=== PATIENT | female | born 1950 | race Caucasian/White ===

== ENCOUNTER 2023-08-12 11:17 | Outpatient (OUT) | payer MEDICARE, OTHER, SELFPAY ==
--- NOTE | 2023-08-12 11:20 | MM_ITS ---
Patient Name: ASHWIN PATTERSON MR#: [id number] : 1950 Exam Date: 08/12/2023 Ordering Doctor: DR TRINA BROCK M.D. RADIOLOGY REPORT PROCEDURE: MM TOMOSYNTHESIS SCREENING BI COMPARISON: MG MAMM SCREEN YURI W CAD, 03/02/2019. MG MAMM SCREEN 3D YURI CAD, 01/09/2021. INDICATIONS: Screening Calculator Name NCI Breast Cancer Risk Assessment Tool 5 Year Breast Cancer Risk 1.40% Lifetime Breast Cancer Risk 3.60% Personal Breast Cancer No Personal Ovarian Cancer No Treatments None Family Cancers Mother with liver cancer at age 57; Father with liver cancer at age 53. LOCATION: [facility] BREAST COMPOSITION: Scattered areas fibroglandular density. FINDINGS: DIAGNOSTIC CATEGORY 1--NEGATIVE. NO CHANGE FROM COMPARISON ASSESSMENT. Scattered benign-appearing calcifications are present. RIGHT BREAST: No significant suspicious finding. LEFT BREAST: No significant suspicious finding. RECOMMENDATIONS: ROUTINE MAMMOGRAM AND CLINICAL EVALUATION IN 12 MONTHS. PLEASE NOTE: A NORMAL MAMMOGRAM DOES NOT EXCLUDE THE POSSIBILITY OF BREAST CANCER. A CLINICALLY SUSPICIOUS PALPABLE LUMP SHOULD BE BIOPSIED. Dictated by: Liam Denny MD on 08/12/2023 at 12:58 Approved by: Liam Denny MD on 08/12/2023 at 12:59
== END 2023-08-12 11:18 | disposition home or self-care (01) ==
LOC: MAMMO 11:17
PROVIDERS: PCP Family Medicine; Visit Provider Family Medicine
DX: Z12.31 Encounter for screening mammogram for malignant neoplasm of breast (principal); Z80.8 Family history of malignant neoplasm of other organs or systems
CPT/HCPCS: 77063; 77067

== ENCOUNTER 2025-04-07 14:26 | Outpatient (OUT) | payer MEDICARE, OTHER, SELFPAY ==
--- NOTE | 2025-04-07 14:28 | MM_ITS ---
Patient Name: ASHWIN PATTERSON MR#: [id number] : 1950 Exam Date: 04/07/2025 Ordering Doctor: DR TRINA BROCK M.D. RADIOLOGY REPORT PROCEDURE: MM TOMOSYNTHESIS SCREENING BI COMPARISON: MM TOMOSYNTHESIS SCREENING BI, 08/12/2023. MG MAMM SCREEN 3D YURI CAD, 01/09/2021. MG MAMM SCREEN YURI W CAD, 03/02/2019. MAMMO YURI SCREEN, 04/15/1997. INDICATIONS: Screening Calculator Name NCI Breast Cancer Risk Assessment Tool 5 Year Breast Cancer Risk 1.40% Lifetime Breast Cancer Risk 3.40% Personal Breast Cancer No Personal Ovarian Cancer No Treatments None Family Cancers Mother with liver cancer at age 57; Father with liver cancer at age 53. LOCATION: [facility] BREAST COMPOSITION: There are scattered areas of fibroglandular density. FINDINGS: RIGHT BREAST: No significant suspicious finding. LEFT BREAST: No significant suspicious finding. DIAGNOSTIC CATEGORY 1--NEGATIVE. RECOMMENDATIONS: ROUTINE MAMMOGRAM AND CLINICAL EVALUATION IN 12 MONTHS. Dictated by: To Alvarez DO on 04/07/2025 at 16:38 Approved by: To Alvarez DO on 04/07/2025 at 16:55
--- OUTSIDE RECORDS SUMMARY | 2025-04-07 15:45 | XMS_ITS | CCD ---
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 Name Role Phone MITCHELL, DR BEAR Primary Care Unavailable RYNE, DR JEREMIAH Patel Admitting Unavailable WEST, DR VIRGILIO Serrano Consulting Unavailable HEMMER, DR JEREMIAH Patel Attending Unavailable ZIEBER, DR JESUS Mittal Consulting Unavailable HEMRYAN, DR JEREMIAH Patel Consulting Unavailable DELMY, DR MENA Attending Unavailable DELMY, DR MENA Consulting Unavailable DELMY, DR MENA Admitting Unavailable MITCHELL, DR BEAR Primary Care Unavailable Marco Brock MD Primary Care Provider Marco Brock MD Unavailable Hafsa JETT, Emani Unavailable [phone] [address] 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, Oly Unavailable Unavailable Loy GRANT, Oly Unavailable MARCO BROCK Attending Unavailable MARCO BROCK Attending Unavailable MARCO BROCK Attending Unavailable MARCO BROCK Attending Unavailable Medications Current Medications Medication Drug Class(es) Dates Sig (Normalized) Sig (Original) albuterol 0.833 mg/ml / ipratropium bromide 0.167 mg/ml inhalation solution (16 sources) Anticholinergic, beta2-Adrenergic Agonist Start: 02-11-2024 End: 08-09-2024 ipratropium-albute rol (Duo-Neb) 0.5-2.5 mg/3 mL nebulizer solution Indications: Mucopurulent chronic bronchitis (HCC) Take 3 mL by nebulization in the morning and 3 mL at noon and 3 mL in the evening and 3 mL before bedtime. 360 mL 5 02/11/2024 Active ALPRAZolam 0.25 mg oral tablet (20 sources) Benzodiazepine Start: 01-11-2025 End: 03-24-2025 take 1 tablet by mouth once ALPRAZolam (Xanax) 0.25 MG tablet Indications: Adjustment disorder with anxiety Take 1 tablet (0.25 mg) by mouth every 12 (twelve) hours 60 tablet 02/22/2025 03/24/2025 Active Start: 04-06-2024 End: 01-08-2025 take 1 tablet by mouth once ALPRAZolam (Xanax) 0.25 MG tablet Indications: Adjustment disorder with anxiety Take 1 tablet (0.25 mg) by mouth every 12 (twelve) hours 60 tablet 11/23/2024 01/08/2025 Discontinued (Reorder) Start: 11-04-2023 End: 04-03-2024 take 1 tablet by mouth once ALPRAZolam (Xanax) 0.25 MG tablet Indications: Adjustment disorder with anxiety (CMS/HCC) Take 1 tablet (0.25 mg) by mouth every 12 (twelve) hours 60 tablet 11/04/2023 04/03/2024 Discontinued (Reorder) Start: 08-06-2023 take 1 tablet by mouth once AL PRAZolam (Xanax) 0.25 MG tablet Indications: Adjustment disorder with anxiety (CMS/HCC) Take 1 tablet (0.25 mg) by mouth every 12 (twelve) hours 60 tablet 0 08/06/2023 Active amLODIPine 10 mg oral tablet (20 sources) Dihydropyridine Calcium Channel Donna Start: 11-11-2023 End: 08-06-2024 take 1 tablet by mouth once daily amLODIPine (Norvasc) 10 MG tablet Indications: Hypertension due to endocrine disorder Take 1 tablet (10 mg) by mouth Daily 90 tablet 3 08/06/2024 Active Start: 01-07-2023 take 1 tablet by yaritza th once daily amLODIPine (Norvasc) 10 MG tablet Indications: 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 30 tablet 11 08/06/2023 Active benzonatate 200 mg oral capsule (2 sources) Non-narcotic Antitussive Start: 08-29-2023 End: 09-08-2023 take 1 capsule by mouth three times daily as needed for cough benzonatate (Tessalon) 200 MG capsule Indications: Acute cough Take 1 capsule (200 mg) by mouth 3 (three) times a day as needed for cough for up to 10 days Do not crush or chew. 30 capsule 0 08/29/2023 09/08/2023 Active 120 actuat budesonide 0.16 mg/actuat / formoterol fumarate 0.0048 mg/actuat / glycopyrrolate 0.009 mg/actuat metered dose inhaler (16 sources) Corticosteroid, beta2-Adrenergic Agonist Start: 02-03-2024 take 1 puff(s) by inhalation in the morning Budeson-Glycopyrrol -Formoterol (Breztri Aerosphere) 160-9-4.8 MCG/ACT aerosol Indications: Mucopurulent chronic bronchitis (HCC) Inhale 1 puff in the morning and 1 puff before bedtime. 190 g 02/03/2024 Active cholecalciferol 0.025 mg oral capsule (18 sources) Vitamin D take 1 capsule by mouth in the morning cholecalciferol (Vitamin D-3) 25 MCG (1000 UT) capsule Take 1,000 Units by mouth in the morning. Active 1 ml denosumab 60 mg/ml prefilled syringe (18 sources) RANK Ligand Inhibitor denosumab (Prolia) 60 MG/ML solution prefilled syringe Inject 60 mg under the skin every 6 (six) months. Active doxycycline hyclate 100 mg oral tablet (2 sources) Tetracycline-class Drug Start: 08-29-2023 End: 09-08-2023 doxycycline (Vibra-Tabs) 100 MG tablet Indications: Acute bronchitis, unspecified organism Take 1 tablet (100 mg) by mouth in the morning and 1 tablet (100 mg) before bedtime. Do all this for 10 days. Take with a full glass of water and do not lie down for at least 30 minutes after.. 20 tablet 0 08/29/2023 09/08/2023 Active empagliflozin 25 mg oral tablet (18 sources) Sodium-Glucose Cotransporter 2 Inhibitor Start: 05-15-2023 take 1 tablet by mouth in the morning empagliflozin (Jardiance) 25 MG Indications: Type 2 diabetes mellitus without complication, without long-term current use of insulin (HCC) Take 1 tablet (25 mg) by mouth in the morning. 90 tablet 3 05/15/2023 Active Fish Oils (18 sources) take 1 capsule by mouth in the morning omega-3 (Fish Oil) 1200 MG capsule Take 1,200 mg by mouth in the morning. Active take 1 capsule by mouth in the m orning omega-3 (Fish Oil) 1200 MG capsule Take 1,200 mg by mouth in the morning. 0 Active folic acid 0.4 mg oral tablet (18 sources) take 0.4 mg by mouth in the morning folic acid (Folvite) 400 MCG tablet Take 0.4 mg by mouth in the morning. Active furosemide 20 mg oral tablet (20 sources) Loop Diuretic Start: 04-29-2024 End: 08-06-2024 take 1 tablet by mouth once daily furosemide (Lasix) 20 MG tablet Indications: Ankle edema Take 1 tablet (20 mg) by mouth Daily 100 tablet 3 08/06/2024 Active Start: 06-20-2023 take 1 tablet by yaritza th once daily furosemide (Lasix) 20 MG tablet Indications: Ankle edema TAKE 1 TABLET BY MOUTH ONCE DAILY 100 tablet 3 06/20/2023 Active 3 ml insulin glargine 100 unt/ml pen injector (19 sources) Insulin Analog Start: 06-26-2023 End: 06-15-2025 inject 10 [IU] by subcutaneous injection at bedtime insulin glargine (Lantus SoloStar) 100 UNIT/ML pen Indications: Type 2 diabetes mellitus without complication, without long-term current use of insulin ([facility]) Inject 10 Units under the skin at bedtime 9 mL 3 06/15/2024 06/15/2025 Active methylPREDNISolone (2 sources) Corticosteroid Start: 08-29-2023 End: 09-05-2023 methylPREDNISolone (Medrol Dospak) 4 MG tablets Indications: Acute bronchitis, unspecified organism Follow schedule on package instructions 21 tablet 0 08/29/2023 09/05/2023 Active potassium 99 mg extended release oral tablet (18 sources) take 1 tablet by mouth once daily Potassium 99 MG tablet Take 1 tablet by mouth 1 (one) time each day at the same time. Active semaglutide (Ozempic, 1 MG/DOSE,) 4 MG/3ML solution pen-injector (18 sources) Start: 10-01-2024 inject 1 mg by subcutaneous injection every week semaglutide (Ozempic, 1 MG/DOSE,) 4 MG/3ML solution pen-injector Indications: Type 2 Diabetes Mellitus Inject 1 mg under the skin 1 (one) time per week 1 each 10/01/2024 Active Start: 10-01-2024 End: 10-31-2024 inject 1 mg by subcutaneous injection every week semaglutide (Ozempic, 1 MG/DOSE,) 4 MG/3ML solution pen-injector Indications: Type 2 Diabetes Mellitus Inject 1 mg under the skin 1 (one) time per week 1 each 10/01/2024 10/31/2024 Active Start: 09-29-2024 End: 10-29-2024 inject 1 mg by subcutaneous injection every week semaglutide (Ozempic, 1 MG/DOSE,) 4 MG/3ML solution pen-injector Indications: Type 2 Diabetes Mellitus Inject 1 mg under the skin 1 (one) time per week 1 each 09/29/2024 10/29/2024 Active inject 1 mg by subcu taneous injection every week semaglutide (Ozempic, 1 MG/DOSE,) 4 MG/3ML solution pen-injector Indications: Type 2 Diabetes Mellitus Inject 1 mg under the skin 1 (one) time per week Active inject 1 mg by subcu taneous injection every week semaglutide (Ozempic, 1 MG/DOSE,) 4 MG/3ML solution pen-injector Indications: Type 2 Diabetes Mellitus Inject 1 mg under the skin 1 (one) time per week 0 Active zinc gluconate 30 mg oral tablet (18 sources) take 1 tablet by yaritza once daily zinc 30 MG tablet Take 1 tablet by mouth 1 (one) time each day at the same time. 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/HCC) TAKE 1 TABLET BY MOUTH TWICE DAILY 180 tablet 3 11/11/2023 08/06/2024 Discontinued (Other) Start: 01-07-2023 take 1 tablet by yaritza twice daily metFORMIN (Glucophage) 1000 MG tablet Indications: Type 2 diabetes mellitus without complication, unspecified whether custodial insulin use (CMS/[facility]) TAKE 1 TABLET BY MOUTH TWICE DAILY 180 tablet 3 01/07/2023 Active Problems Active Problems Problem Classification Problem Date Documented Da te Episodic/Chronic Acute bronchitis (2 sources) Acute bronchitis; Translations: [Acute bronchitis, unspecified] 08-29-2023 Episodic Adjustment disorders (20 sources) Adjustment disorder with anxious mood; Translations: [Adjustment disorder with anxiety] Onset: 12-13-2022 12-13-2022 Chronic Chronic obstructive pulmonary disease and bronchiectasis (20 sources) Mucopurulent chronic bronchitis; Translations: [Mucopurulent chronic bronchitis] Onset: 12-13-2022 12-13-2022 Chronic Diabetes mellitus with complications (20 sources) Type 2 diabetes mellitus; Translations: [Type 2 diabetes mellitus with other specified complication] Onset: 02-03-2024 02-03-2024 Chronic Diabetes mellitus without complication (20 sources) Type 2 diabetes mellitus without complication; Translations: [Type 2 diabetes mellitus without complications] Onset: 12-13-2022 12-13-2022 Chronic Diabetes mellitus without complication (2 sources) Abnormal glucose tolerance test; Translations: [Other abnormal glucose] 08-06-2024 Episodic Disorders of lipid metabolism (20 sources) Mixed hyperlipidemia; Translations: [Mixed hyperlipidemia] Onset: 12-13-2022 12-13-2022 Chronic Essential hypertension (20 sources) Benign essential hypertension; Translations: [Essential (primary) hypertension] Onset: 08-06-2023 08-06-2023 Chronic Hypertension with complications and secondary hypertension (20 sources) Hypertension secondary to endocrine disorder; Translations: [Hypertension secondary to endocrine disorders] Onset: 12-13-2022 12-13-2022 Chronic Immunizations and screening for infectious disease (2 sources) Patient encounter status; Translations: [Encounter for immunization] 08-06-2024 Episodic Malaise and fatigue (1 source) Other fatigue; Translations: [OTHER FATIGUE] Onset: 08-08-2021 Episodic Menopausal disorders (20 sources) Other primary ovarian failure; Translations: [Primary ovarian failure] Onset: 01-09-2021 Chronic Osteoporosis (20 sources) Age-related osteoporosis without current pathological fracture; Translations: [Osteoporosis] Onset: 01-13-2021 12-13-2022 Chronic Other aftercare (2 sources) Long-term current use of insulin; 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] 08-06-2024 Episodic Other lower respiratory disease (2 sources) Interstitial lung disease; Translations: [Interstitial pulmonary disease, unspecified] 08-06-2024 Chronic Other lower respiratory disease (2 sources) Cough; Translations: [Acute cough] 08-29-2023 Episodic Other nutritional; endocrine; and metabolic disorders (18 sources) Hypercalcemia; Translations: [Hypercalcemia] Onset: 12-13-2022 12-13-2022 Chronic Other upper respiratory disease (4 sources) Nasal congestion; Translations: [NASAL CONGESTION] Onset: 08-04-2021 Episodic Other upper respiratory infections (18 sources) Sinusitis; Translations: [Chronic sinusitis, unspecified] Onset: 12-13-2022 12-13-2022 Chronic Unclassified (1 source) COUGH, UNSPECIFIED; Translations: [COUGH, UNSPECIFIED] Onset: 08-08-2021 Viral infection (1 source) COVID-19; Translations: [COVID-19] Onset: 08-08-2021 Past or Other Problems Problem Classification Problem Date Documented Da te Episodic/Chronic Other connective tissue disease (4 sources) Muscle pain; Translations: [Myalgia, unspecified site] Onset: 11-12-2024 11-12-2024 Episodic Other non-traumatic joint disorders (20 sources) Ankle edema; Translations: [Effusion, unspecified ankle] Onset: 12-13-2022 12-13-2022 Episodic Other screening for suspected conditions (not mental disorders or infectious disease) (20 sources) Encounter for screening mammogram for malignant neoplasm of breast; Translations: [Measurement finding above reference range] Onset: 01-13-2021 12-13-2022 Episodic Residual codes; unclassified (1 source) Family history of malignant neoplasm of other organs or systems; Translations: [FAM HX MALIG NEOPLASM OTH ORGN/SYS] Onset: 01-13-2021 Episodic Results Test Name Value Interpretation Reference Range Facility CBC (INCLUDES DIFF/PLT)on Basophils (Bld) [#/Vol] 0.073 10*3/uL Normal 0-200 [facility] Comment on above: Performed By: #### 7 600, 6399, [id number] #### [facility] of [address], [address] [place] [address] [employer] Supervisor: Jason Hastings MD Basophils/100 WBC (Bld) 0.9 % Normal [facility] Comment on above: Performed By: #### 7 600, 6399, 67300 #### [facility] of [address], [address] [place] [address] [employer] Supervisor: Jason Hastings MD Eosinophils (Bld) [#/Vol] 0.64 10*3/uL High 15-500 [facility] Comment on above: Performed By: #### 7 600, 6399, 70005 #### [facility] of [place] [address] [employer] Supervisor: Jason Hastings MD Eosinophils/100 WBC (Bld) 7.9 % Normal [facility] Comment on above: Performed By: #### 7 600, 6399, 70555 #### [facility] of [place] [address] [employer] Supervisor: Jason Hastings MD Erythrocyte distribution width (RBC) [Ratio] 13.8 % Normal 11.0-15.0 [facility] Comment on above: Performed By: #### 7 600, 6399, 30461 #### [facility] of [place] [address] [employer] Supervisor: Jason Hastings MD Hematocrit (Bld) [Volume fraction] 45.8 % High 35.0-45.0 [facility] Comment on above: Performed By: #### 7 600, 6399, 50904 #### [facility] of [place] [address] [employer] Supervisor: Jason Hastings MD Hemoglobin (Bld) [Mass/Vol] 14.9 g/dL Normal 11.7-15.5 [facility] Comment on above: Performed By: #### 7 600, 6399, 37429 #### [facility] of [address], [address] [place] [address] [employer] Supervisor: Jason Hastings MD Lymphocytes (Bld) [#/Vol] 3.605 10*3/uL Normal 850-3900 [facility] Comment on above: Performed By: #### 7 600, 6399, 55531 #### [facility] [address], [address] [place] [address] [employer] Supervisor: Jason Hastings MD Lymphocytes/100 WBC (Bld) 44.5 % Normal [facility] Comment on above: Performed By: #### 7 600, 6399, 63686 #### [facility] [place] [address] [employer] Supervisor: Jason Hastings MD MCH (RBC) [Entitic mass] 29.7 pg Normal 27.0-33.0 [facility] Comment on above: Performed By: #### 7 600, 63, 82523 #### [facility] [place] [address] [employer] Supervisor: Jason Hastings MD MCHC (RBC) [Mass/Vol] 32.5 g/dL Normal 32.0-36.0 [facility] Comment on above: Result Comment: For adults, a slight decrease in the calculated MCHC value (in the range of 30 to 32 g/dL) is most likely not clinically significant; however, it should be interpreted with caution in correlation with other red cell parameters and the patient's clinical condition. Performed By: #### 7 600, 6399, 25613 #### [facility] [place] [address] [employer] Supervisor: Jason Hastings MD MCV (RBC) [Entitic vol] 91.2 fL Normal 80.0-100.0 [facility] Comment on above: Performed By: #### 7 600, 6399, 99455 #### [facility] [place] [address] [employer] Supervisor: Jason Hastings MD Monocytes (Bld) [#/Vol] 0.567 10*3/uL Normal 200-950 [facility] Comment on above: Performed By: #### 7 600, 6399, 96763 #### [facility] of [place] [address] [employer] Supervisor: Jason Hastings MD Monocytes/100 WBC (Bld) 7.0 % Normal [facility] Comment on above: Performed By: #### 7 600, 6399, 82074 #### [facility] of [place] [address] [employer] Supervisor: Jason Hastings MD Neutrophils (Bld) [#/Vol] 3.216 10*3/uL Normal 6157-3090 [facility] Comment on above: Performed By: #### 7 600, 6399, 69710 #### [facility] of [place] [address] [employer] Supervisor: Jason Hastings MD Neutrophils/100 WBC (Bld) 39.7 % Normal [facility] Comment on above: Performed By: #### 7 600, 6399, 64364 #### [facility] of [place] [address] [employer] Supervisor: Jason Hastings MD Platelet mean volume (Bld) [Entitic vol] 10.7 fL Normal 7.5-12.5 [facility] Comment on above: Performed By: #### 7 600, 6399, 32534 #### [facility] of [place] [address] [employer] Supervisor: Jason Hastings MD Platelets (Bld) [#/Vol] 258 10*3/uL Normal 140-400 [facility] Comment on above: Performed By: #### 7 600, 6399, 34929 #### [facility] of [place] [address] [employer] Supervisor: Jason Hastings MD RBC (Bld) [#/Vol] 5.02 10*6/uL Normal 3.80-5.10 [facility] Comment on above: Performed By: #### 7 600, 6399, 26862 #### [facility] of [address], [address] [place] [address] [employer] Supervisor: Jason Hastings MD WBC (Bld) [#/Vol] 8.1 10*3/uL Normal 3.8-10.8 [facility] Comment on above: Performed By: #### 7 600, 6399, 39640 #### [facility] of [address], [address] [place] [address] [employer] Supervisor: Jason Hastings MD COMPREHENSIVE METABOLIC PANE [facility] 10-31-2024 Albumin [Mass/Vol] 4.4 g/dL Normal 3.6-5.1 [facility] Comment on above: Performed By: #### 7 600, 6399, 92299 #### [facility] of [address], [address] [place] [address] [employer] Supervisor: Jason Hastings MD Albumin/Globulin [Mass ratio] 1.8 {ratio} Normal 1.0-2.5 [facility] Comment on above: Performed By: #### 7 600, 6399, 31662 #### [facility] of [address], [address] [place] [address] [employer] Supervisor: Jason Hastings MD ALP [Catalytic activity/Vol] 64 U/L Normal 37-153 [facility] Comment on above: Performed By: #### 7 600, 6399, 34348 #### [facility] of [place] [address] [employer] Supervisor: Jason Hastings MD ALT [Catalytic activity/Vol] 11 U/L Normal 6-29 [facility] Comment on above: Performed By: #### 7 600, 6399, 75269 #### [facility] of [place] [address] [employer] Supervisor: Jason Hastings MD AST [Catalytic activity/Vol] 14 U/L Normal 10-35 [facility] Comment on above: Performed By: #### 7 600, 6399, 40173 #### [facility] of [place] [address] [employer] Supervisor: Jason Hastings MD Bilirubin [Mass/Vol] 0.3 mg/dL Normal 0.2-1.2 [facility] Comment on above: Performed By: #### 7 600, 6399, 35202 #### [facility] of [address], [address] [place] [address] [employer] Supervisor: Jason Hastings MD Calcium [Mass/Vol] 10.0 mg/dL Normal 8.6-10.4 [facility] Comment on above: Performed By: #### 7 600, 6399, 85305 #### [facility] of [place] [address] [employer] Supervisor: Jason Hastings MD Chloride [Moles/Vol] 100 mmol/L Normal 98-110 [facility] Comment on above: Performed By: #### 7 600, 6399, 29346 #### [facility] of [place] [address] [employer] Supervisor: Jason Hastings MD CO2 [Moles/Vol] 30 mmol/L Normal 20-32 [facility] Comment on above: Performed By: #### 7 600, 6399, 18074 #### [facility] [place] [address] [employer] Supervisor: Jason Hastings MD Creatinine [Mass/Vol] 0.55 mg/dL Low 0.60-1.00 [facility] Comment on above: Performed By: #### 7 600, 6399, 78764 #### [facility] [place] [address] [employer] Supervisor: Jason Hastings MD GFR/1.73 sq M.predicted among non-blacks MDRD (S/P/Bld) [Vol rate/Area] 97 mL/min/{1.73_m2} Normal > OR = 60 [facility] Comment on above: Performed By: #### 7 600, 6399, 10435 #### [facility] of [place] [address] [employer] Supervisor: Jason Hastings MD Globulin (S) [Mass/Vol] 2.4 g/dL Normal 1.9-3.7 [facility] Comment on above: Performed By: #### 7 600, 6399, 06335 #### [facility] [place] [address] [employer] Supervisor: Jason Hastings MD Glucose [Mass/Vol] 106 mg/dL High 65-99 [facility] Comment on above: Result Comment: Fasting reference interval For someone without known diabetes, a glucose value between 100 and 125 mg/dL is consistent with prediabetes and should be confirmed with a follow-up test. Performed By: #### 7 600, 6399, 18834 #### [facility] [place] [address] [employer] Supervisor: Jason Hastings MD Potassium [Moles/Vol] 4.6 mmol/L Normal 3.5-5.3 [facility] Comment on above: Performed By: #### 7 600, 6399, 41674 #### [facility] [place] [address] [employer] Supervisor: Jason Hastings MD Protein [Mass/Vol] 6.8 g/dL Normal 6.1-8.1 [facility] Comment on above: Performed By: #### 7 600, 6399, 74341 #### [facility] [place] [address] [employer] Supervisor: Jason Hastings MD Sodium [Moles/Vol] 140 mmol/L Normal 135-146 [facility] Comment on above: Performed By: #### 7 600, 6399, 85019 #### [facility] [place] [address] [employer] Supervisor: Jason Hastings MD Urea nitrogen [Mass/Vol] 30 mg/dL High 7-25 [facility] Comment on above: Performed By: #### 7 600, 6399, 68659 #### [facility] [place] [address] [employer] Supervisor: Jason Hastings MD Urea nitrogen/Creatinine [Mass ratio] 55 mg/mg High 6-22 [facility] Comment on above: Performed By: #### 7 600, 6399, 87127 #### [facility] [address], [address] [place] [address] [employer] Supervisor: Jason Hastings MD LIPID PANEL, [facility] 10-20 Cholesterol [Mass/Vol] 206 mg/dL High <200 [facility] Comment on above: Order Comment: SPLIT 10/28/2024 FROM [id number] Performed By: #### 7 600, 6399, 16740 #### [facility] [address], [address] [place] [address] [employer] Supervisor: Jason Hastings MD Cholesterol in HDL [Mass/Vol] 57 mg/dL Normal > OR = 50 [facility] Comment on above: Order Comment: SPLIT 10/28/2024 FROM [id number] Performed By: #### 7 600, 6399, 68094 #### [facility] [address], [address] [place] [address] [employer] Supervisor: Jason Hastings MD Cholesterol in LDL [Mass/Vol] 124 mg/dL High [facility] Comment on above: Order Comment: SPLIT 10/28/2024 FROM [id number] Result Comment: Refe rence range: <100 Desirable range <100 mg/dL for primary prevention; <70 mg/dL for patients with CHD or diabetic patients with > or = 2 CHD risk factors. LDL-C is now calculated using the Eduardo-Juan Luis calculation, which is a validated novel method providing better accuracy than the Friedewald equation in the estimation of LDL-C. Eduardo RUIZ et al. MIGUEL. 2013;310(19): 2517-8659 (http://education.whoplusyou.[employer]faq/CEB503) Performed By: #### 7 600, 6399, 26816 #### [facility] [address], [address] [place], [place] [address] [employer] Supervisor: Jason Hastings MD Cholesterol.total/C holesterol in HDL [Mass ratio] 3.6 {ratio} Normal <5.0 [facility] Comment on above: Order Comment: SPLIT 10/28/2024 FROM [id number] Performed By: #### 7 600, [id number], [id number] #### [facility] [address], [address] [place] [address] [employer] Supervisor: Jason Hastings MD NON HDL CHOLESTEROL 149 mg/dL (calc) High <130 [facility] Comment on above: Order Comment: SPLIT 10/28/2024 FROM [id number] Result Comment: For patients with diabetes plus 1 major ASCVD risk factor, treating to a non-HDL-C goal of <100 mg/dL (LDL-C of <70 mg/dL) is considered a therapeutic option. Performed By: #### 7 600, 6399, [id number] #### [facility] [address], [address] [place] [address] [employer] Supervisor: Jason Hastings MD Triglyceride [Mass/Vol] 141 mg/dL Normal <150 [facility] Comment on above: Order Comment: SPLIT 10/28/2024 FROM [id number] Performed By: #### 7 600, [id number], [id number] #### [facility] [address], [address] [place] [address] [employer] Supervisor: Jason Hastings MD ALBUMIN, RANDOM URINE W/CREA TININEon 10-29-2024 ALBUMIN, URINE 1.3 mg/dL Normal See Note: [facility] Comment on above: Order Comment: FASTI NG:YES DIFFICULT DRAW. PATIENT ADVISED TO RETURN FOR COLLECTION. FASTING: YES Result Comment: Refe rence Range: Reference Range Not established Performed By: #### 6 517 #### [facility] [address], [address] [place] [address] [employer] Supervisor: Jason Hastings MD ALBUMIN/CREATININE RATIO, RANDOM URINE 87 mg/g creat High <30 [facility] Comment on above: Order Comment: FASTI NG:YES DIFFICULT DRAW. PATIENT ADVISED TO RETURN FOR COLLECTION. FASTING: YES Result Comment: The ADA defines abnormalities in albumin excretion as follows: Albuminuria Category Result (mg/g creatinine) Normal to Mildly increased <30 Moderately increased 30-299 Severely increased > OR = 300 The ADA recommends that at least two of three specimens collected within a 3-6 month period be abnormal before considering a patient to be within a diagnostic category. Performed By: #### 6 517 #### [facility] [address], [address] [place] [address] [employer] Supervisor: Jason Hastings MD Creatinine (U) [Mass/Vol] 15 mg/dL Low 20-275 [facility] Comment on above: Order Comment: FASTI NG:YES DIFFICULT DRAW. PATIENT ADVISED TO RETURN FOR COLLECTION. FASTING: YES Performed By: #### 6 517 #### [facility] [address], [address] [place] [address] [employer] Supervisor: Jason Hastings MD Laboratory - Hematology and Cell countson 08-06-2024 HbA1c (Bld) [Mass fraction] 5.8 % [facility] No Panel Informationon 08-06 Interpretation and review of laboratory results Normal [facility] Chest 2 Views*on 08-03-19 23 XR Chest 2 Views* HISTORY: Cough x 2 weeks FINDINGS: Diffuse increase in interstitial markings are present, possibly representing interstitial pneumonia. No alveolar infiltrate, hilar/mediastinal lymphadnenopathy pulmonary edema or pleural effusions are seen. Cardiac silhouette size is normal. Skeletal structures are unremarkable. IMPRESSION: Parenchymal findings, possible acute interstitial pneumonia. COMMENT: If interstitial pneumonia is not clinically suspect, findings can be consistent with early interstitial lung disease. Report reported and signed by Alin Stauffer on 08/03/2022 1036 Normal [facility] Microalbumin (with Creat)on 10-18-2021 mALB <1.[address] [facility] Comment on above: Result Comment: Unab le to calculate mALB/Crea ratio, mALB is <1.2 mg/dL mALB reference range not established. Performed By: #### m ALBC #### [facility] [address] [id number] UCREA 8 mg/dL Low 28-217 [facility] Comment on above: Performed By: #### m ALBC #### [facility] [address], [place] [id number] RESPIRATORY PANEL PLUSon Adenovirus Not detected Normal NOT DETECTED [facility] Comment on above: Performed By: #### R SPLUS #### [facility] [address] [place] [address] Dr. Sam Vallejo. Parapertusis Not detected Normal NOT DETECTED [facility] Comment on above: Performed By: #### R SPLUS #### [facility] [address] [place] [address] Dr. Sam Vallejo. Pertussis Not detected Normal NOT DETECTED [facility] Comment on above: Performed By: #### R SPLUS #### [facility] [address] [place] [address] Dr. Sam Weber Chlamydia Pneumoniae Not detected Normal NOT DETECTED [facility] Comment on above: Performed By: #### R SPLUS #### [facility] [address] [place] [address] Dr. Sam Weber Coronavirus 229E Not detected Normal NOT DETECTED [facility] Comment on above: Performed By: #### R SPLUS #### [facility] [address] [place] [address] Dr. Sam Weber Coronavirus HKU1 Not detected Normal NOT DETECTED [facility] Comment on above: Performed By: #### R SPLUS #### [facility] [address] [place] [address] Dr. Sam Weber Coronavirus NL63 Not detected Normal NOT DETECTED [facility] Comment on above: Performed By: #### R SPLUS #### [facility] [address] [place] [address] Dr. Sam Weber Coronavirus OC43 Not detected Normal NOT DETECTED [facility] Comment on above: Performed By: #### R SPLUS #### [facility] [address] [place] [address] Dr. Sam Weber Influenza A H1 2009 Not detected Normal NOT DETECTED [facility] Comment on above: Performed By: #### R SPLUS #### [facility] [address] [place] [address] Dr. Sam Weber Influenza A H3 Not detected Normal NOT DETECTED [facility] Comment on above: Performed By: #### R SPLUS #### [facility] [address] [place] [address] Dr. Sam Weber Influenza B Not detected Normal NOT DETECTED [facility] Comment on above: Performed By: #### R SPLUS #### [facility] [address] [place] [address] Dr. Sam Weber Metapneumovirus Not detected Normal NOT DETECTED [facility] Comment on above: Performed By: #### R SPLUS #### [facility] [address] [place] [address] Dr. Sam Weber Mycoplas. Pneumoniae Not detected Normal NOT DETECTED [facility] Comment on above: Performed By: #### R SPLUS #### [facility] [address] [place] [address] Dr. Sam Weber Parainfluenza 1 Not detected Normal NOT DETECTED [facility] Comment on above: Performed By: #### R SPLUS #### [facility] [address] [place] [address] Dr. Sam Weber Parainfluenza 2 Not detected Normal NOT DETECTED [facility] Comment on above: Performed By: #### R SPLUS #### [facility] [address] [place] [address] Dr. Sam Weber Parainfluenza 3 Not detected Normal NOT DETECTED [facility] Comment on above: Performed By: #### R SPLUS #### [facility] [address] [place] [address] Dr. Sam Weber Parainfluenza 4 Not detected Normal NOT DETECTED [facility] Comment on above: Performed By: #### R SPLUS #### [facility] [address] [place] [address] Dr. Sam Weber Rhino/Enterovirus Not detected Normal NOT DETECTED [facility] Comment on above: Performed By: #### R SPLUS #### [facility] [address] [place] [address] Dr. Sam Weber RP2 Header 1 RESPIRATORY PANEL: VIRUSES Normal [facility] Comment on above: Performed By: #### R SPLUS #### [facility] [address] [place] [address] Dr. Sam Weber RP2 Header 2 RESPIRATORY PANEL: BACTERIA Normal [facility] Comment on above: Performed By: #### R SPLUS #### [facility] [address] [place] [address] Dr. Sam Weber RSV Not detected Normal NOT DETECTED [facility] Comment on above: Performed By: #### R SPLUS #### [facility] [address] [place] [address] Dr. Sam Weber SARS-CoV-2 (COVID-19) RNA ANNEL+probe Ql (Unsp spec) Detected Critically abnormal NOT DETECTED [facility] Comment on above: Performed By: #### R SPLUS #### [facility] [address] [place] [address] Dr. Sam Weber MG MAMM SCREEN 3D YURI CADon 01-09-2021 MG MAMM SCREEN 3D YURI CAD Patient: ASHWIN MORA Exam Date: 01/09/2021 : 1950 Gender:F Ordering : DR JEREMIAH MICHELE PA Admission #: [id number] Family : Order #: [id number] CLICK HERE TO VIEW EXAM RADIOLOGY REPORT PROCEDURE: MAMMOGRAM SCREENING 3D BILATERAL CAD COMPARISON: MG MAMM SCREEN YURI W CAD, 01/15/2018. MG MAMM SCREEN YURI W CAD, 03/02/2019. INDICATIONS: Screening mammography Calculator Name NCI Breast Cancer Risk Assessment Tool 5 Year Breast Cancer Risk 1.40% Lifetime Breast Cancer Risk 4.20% Personal Breast Cancer No Personal Ovarian Cancer No Treatments None Family Cancers Mother with liver cancer at age 57; Father with liver cancer at age 53. LOCATION: [facility] BREAST COMPOSITION: Scattered areas fibroglandular density. FINDINGS: DIAGNOSTIC CATEGORY 1--NEGATIVE NO CHANGE FROM COMPARISON ASSESSMENT. Scattered benign-appearing calcifications are present. Scattered benign-appearing lymph nodes are present. RIGHT BREAST: No significant suspicious finding. LEFT BREAST: No significant suspicious finding. RECOMMENDATIONS: ROUTINE MAMMOGRAM AND CLINICAL EVALUATION IN 12 MONTHS. PLEASE NOTE: A NORMAL MAMMOGRAM DOES NOT EXCLUDE THE POSSIBILITY OF BREAST CANCER. A CLINICALLY SUSPICIOUS PALPABLE LUMP SHOULD BE BIOPSIED. Dictated by: Virgilio Denny MD on 01/10/2021 at 07:42 Approved by: Virgilio Denny MD on 01/10/2021 at 07:45 Normal [facility] XR DEXA BONE DENSITYon 01-09 XR DEXA BONE DENSITY EXAMINATION: XR DEXA BONE DENSITY HISTORY: Menopause present COMPARISON: DEXA bone densitometry 03/02/2019 TECHNIQUE: Dual-energy X-ray absorptiometry (DXA) was performed. FINDINGS: SPINE ANALYSIS: Average bone mineral density is 1.022 g/cm2. T-score (standard deviation relative to young adult mean): -1.5 . -1.9% change since prior study. HIP ANALYSIS: Lowest bone mineral density is within the left femoral neck, 0.6-0 g/cm2. T-score (standard deviation relative to young adult mean): -3.0 . -2.1% change since prior study. IMPRESSION: [employer] Classification: Osteoporosis - High Fracture Risk Electronically authenticated by: JESUS FOX Date: 2021-01-09 11:43 Normal [facility] Vital Signs Date Time Vital Sign Value Performing Clinician Faci lity 02-22-2025 13:13-0400 Body height 149.9 cm Marco Brock MD Work Phone: [facility] 02-22-2025 13:13-0400 Body mass index (BMI) [Ratio] 29.08 kg/m2 Marco Brock MD Work Phone: [facility] 02-22-2025 13:13-0400 Body weight 65.32 kg Marco Brock MD Work Phone: [facility] 02-22-2025 13:13-0400 Diastolic blood pressure 78 mm[Hg] Marco Brock MD Work Phone: [facility] 02-22-2025 13:13-0400 Heart rate 65 /min Marco Brock MD Work Phone: [facility] 02-22-2025 13:13-0400 SaO2% (BldA) [Mass fraction] 95 % Marco Brock MD Work Phone: [facility] 02-22-2025 13:13-0400 Systolic blood pressure 130 mm[Hg] Marco Brock MD Work Phone: [facility] 10-26-2024 13:13-0400 Body height 149.9 cm Marco Brock MD Work Phone: [facility] 10-26-2024 13:13-0400 Body mass index (BMI) [Ratio] 29.08 kg/m2 Marco Brock MD Work Phone: [facility] 10-26-2024 13:13-0400 Body weight 65.32 kg Marco Brock MD Work Phone: [facility] 10-26-2024 13:13-0400 Diastolic blood pressure 84 mm[Hg] Marco Brock MD Work Phone: [facility] 10-26-2024 13:13-0400 Heart rate 88 /min Marco Brock MD Work Phone: [facility] 10-26-2024 13:13-0400 SaO2% (BldA) [Mass fraction] 93 % Marco Brock MD Work Phone: [facility] 10-26-2024 13:13-0400 Systolic blood pressure 122 mm[Hg] Marco Brock MD Work Phone: [facility] 08-06-2024 14:18-0500 Body height 149.9 cm Marco Brock MD Work Phone: [facility] 08-06-2024 14:18-0500 Body mass index (BMI) [Ratio] 28.07 kg/m2 Marco Brock MD Work Phone: [facility] 08-06-2024 14:18-0500 Body weight 63.05 kg Marco Brock MD Work Phone: [facility] 08-06-2024 14:18-0500 Diastolic blood pressure 84 mm[Hg] Marco Brock MD Work Phone: [facility] 08-06-2024 14:18-0500 Heart rate 86 /min Mraco Brock MD Work Phone: [facility] 08-06-2024 14:18-0500 SaO2% (BldA) [Mass fraction] 95 % Marco Brock MD Work Phone: [facility] 08-06-2024 14:18-0500 Systolic blood pressure 126 mm[Hg] Marco Brock MD Work Phone: [facility] 06-22-2024 13:24-0500 Body height 149.9 cm Marco Brock MD Work Phone: [facility] 06-22-2024 13:24-0500 Body mass index (BMI) [Ratio] 27.87 kg/m2 Marco Brokc MD Work Phone: [facility] 06-22-2024 13:24-0500 Body weight 62.6 kg Marco Brock MD Work Phone: [facility] 06-22-2024 13:24-0500 Diastolic blood pressure 82 mm[Hg] Marco Brock MD Work Phone: [facility] 06-22-2024 13:24-0500 Heart rate 72 /min Marco Brock MD Work Phone: [facility] 06-22-2024 13:24-0500 SaO2% (BldA) [Mass fraction] 95 % Marco Brock MD Work Phone: [facility] 06-22-2024 13:24-0500 Systolic blood pressure 132 mm[Hg] Marco Brock MD Work Phone: [facility] 08-29-2023 10:02-0500 Body mass index (BMI) [Ratio] 31.87 kg/m2 Sarah Jimenez AUTHORIZER Work Phone: [facility] 08-29-2023 10:02-0500 Body temperature 98.1 [degF] Sarah Jimenez AUTHORIZER Work Phone: [facility] 08-29-2023 10:02-0500 Body weight 71.58 kg Sarah Jimenez AUTHORIZER Work Phone: [facility] 08-29-2023 10:02-0500 Diastolic blood pressure 88 mm[Hg] Sarah Jimenez AUTHORIZER Work Phone: [facility] 08-29-2023 10:02-0500 Heart rate 105 /min Sarah Jimenez AUTHORIZER Work Phone: [facility] 08-29-2023 10:02-0500 SaO2% (BldA) [Mass fraction] 95 % Sarah Jimenez AUTHORIZER Work Phone: [facility] 08-29-2023 10:02-0500 Systolic blood pressure 124 mm[Hg] Sarah Jimenez AUTHORIZER Work Phone: [facility] Encounters Encounter Date Encounter Type Care Provider Facility Start: 02-22-2025 End: 02-22-2025 Office outpatient visit 25 minutes Marco Brock MD Work Phone: [facility] Comment on above: Microalbuminuria due to type 2 diabetes mellitus (HCC) (Primary Dx); Adjustment disorder with anxiety Start: 02-22-2025 End: 02-22-2025 ambulatory MARCO BROCK Not Available Start: 01-08-2025 End: 01-11-2025 Refill Siena Ya LPN Work Phone: [facility] Comment on above: Adjustment disorder with anxiety Start: 11-23-2024 End: 11-23-2024 Refill Marco Brock MD Work Phone: [facility] Comment on above: Adjustment disorder with anxiety (CMS/HCC) Start: 10-26-2024 End: 10-26-2024 ambulatory MARCO BROCK Not Available Start: 10-26-2024 End: 10-26-2024 Office outpatient visit 25 minutes Marco Brock MD Work Phone: [facility] Comment on above: Adjustment disorder with anxiety (CMS/HCC) (Primary Dx); 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); Benign essential hypertension (CMS/HCC); Type 2 diabetes mellitus with other specified complication, with long-term current use of insulin Start: 09-30-2024 End: 09-30-2024 Refill Marco Brock MD Work Phone: [facility] Comment on above: Adjustment disorder with anxiety (CMS/HCC) Start: 09-29-2024 End: 09-30-2024 Refill Emani Levon MA [facility] Comment on above: Adjustment disorder with anxiety (CMS/HCC) Start: 08-06-2024 End: 08-06-2024 Assay of hemosiderin, quant Marco Brock MD Work Phone: [facility] Start: 08-06-2024 End: 08-06-2024 Bamboo flowsheet Marco Brock MD Work Phone: [facility] Start: 08-06-2024 End: 08-06-2024 Bamboo flowsheet Marco Brock MD Work Phone: [facility] Start: 08-06-2024 End: 08-06-2024 Patient encounter procedure Marco Brock MD Work Phone: [facility] Comment on above: Routine general medi chris examination at 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); Adjustment disorder with anxiety (CMS/HCC); Encounter for immunization; Type 2 diabetes mellitus without complication, without long-term current use of insulin (CMS/HCC); Abnormal glucose tolerance test; Medicare annual wellness visit, subsequent; Mixed hyperlipidemia (CMS/HCC); Interstitial pulmonary disease, unspecified (CMS/HCC); Type 2 diabetes mellitus with other specified complication (CMS/HCC); Hyperlipidemia, unspecified (CMS/HCC); Chronic obstructive pulmonary disease, unspecified (CMS/HCC); Mucopurulent chronic bronchitis (CMS/HCC); longterm (current) use of insulin (CMS/HCC) Start: 08-06-2024 End: 08-06-2024 ambulatory MARCO BROCK Not Available Start: 06-22-2024 End: 06-22-2024 Office outpatient visit 25 minutes Marco Brock MD Work Phone: [facility] Comment on above: Osteoporosis without current pathological fracture, unspecified osteoporosis type (CMS/HCC) (Primary Dx); Adjustment disorder with anxiety (CMS/HCC) Start: 06-22-2024 End: 06-22-2024 ambulatory MARCO BROCK Not Available Start: 06-13-2024 End: 06-15-2024 Refill Marco Brock MD Work Phone: [facility] Comment on above: Type 2 diabetes jayna itus without complication, without long- term current use of insulin (CMS/HCC) Start: 05-20-2024 End: 05-20-2024 Refill 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 Work Phone: [facility] Comment on above: Adjustment disorder with anxiety (CMS/HCC) Start: 04-03-2024 End: 04-06-2024 Refill 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 Work Phone: [facility] Comment on above: Adjustment disorder with anxiety (CMS/HCC) (Primary Dx) Start: 08-29-2023 End: 08-29-2023 Office outpatient visit 25 minutes Sarah Jimenez AUTHORIZER Work Phone: [facility] Comment on above: Acute bronchitis, un specified organism (Primary Dx); Acute cough Start: 08-06-2023 End: 10-07-2023 Patient encounter procedure Sarah Jimenez NP Work Phone: [facility] Start: 08-04-2021 End: 08-04-[address] MARCO BROCK Facility:[facility] Start: 01-09-2021 End: 01-10-[address] CHEMA MEDRANO Facility:[facility] Procedures Date Procedure Procedure Detail Performing Clinician Start: 08-06-2024 Hemoglobin glycosylated a1c Marco Brock MD Work Phone: Start: 08-12-2023 Mammography Sarah Jimenez AUTHORIZER Work Phone: Start: 12-13-2022 H/O: hysterectomy Status post hysterectomy Sarah Jimenez AUTHORIZER Work Phone: Start: 02-11-2017 Colonoscopy Sarah Jimenez AUTHORIZER Work Phone: Plan of Treatment Date Care Activity Detail Author Start: 02-11-2027 Screening for malign ant neoplasm of colon [facility] Start: 10-28-2025 Urine screening for protein Diabetes: Urine Protein Screening [facility] Start: 08-06-2025 Medicare Annual Wellness (AWV) Medicare Annual Wellness (AWV) [facility] Start: 03-22-2025 Influenza vaccination Influenza Vacc ine (#1) [facility] Start: 02-22-2025 End: 02-22-2025 Patient encounter procedure 02/22/2025 1:00 PM EDT Office Visit [facility] [address] [facility] [address] [place] [address] Marco Brock MD [address] [facility] [address] [place] [address] [facility] Start: 11-04-2024 Hemoglobin A1c measurement Diabetes: Hemoglobin A1C [facility] Start: 10-26-2024 End: 10-26-2024 Patient encounter procedure 10/26/2024 1:00 PM EDT Office Visit [facility] [address] [facility] [address] [place] [address] Marco Brock MD [address] [facility] [address] [place] [address] [facility] Start: 10-14-2024 End: 08-06-2025 CBC W Auto Differential panel - Blood CBC and differential Lab Routine Hypertension due to endocrine disorder ([facility]/HCC) Type 2 diabetes mellitus without complication, without long-term current use of insulin ([facility]) Medicare annual wellness visit, subsequent Mixed hyperlipidemia (CMS/HCC) Expected: 10/14/2024 (Approximate), Expires: 08/06/2025 [facility] Comment on above: Expected: 10/14/2024 (Approximate), Expires: 08/06/2025 Start: 10-14-2024 End: 08-06-2025 Comprehensive metabolic 2000 panel - Serum or Plasma Comprehensive metabolic panel Lab Routine Hypertension due to endocrine disorder ([facility]/HCC) Type 2 diabetes mellitus without complication, without long-term current use of insulin ([facility]) Abnormal glucose tolerance test Medicare annual wellness visit, subsequent Mixed hyperlipidemia (CMS/HCC) Expected: 10/14/2024 (Approximate), Expires: 08/06/2025 [facility] Comment on above: Expected: 10/14/2024 (Approximate), Expires: 08/06/2025 Start: 10-14-2024 End: 08-06-2025 Lipid 1996 panel - Serum or Plasma Lipid panel Lab Routine Medicare annual wellness visit, subsequent Mixed hyperlipidemia (CMS/HCC) Expected: 10/14/2024 (Approximate), Expires: 08/06/2025 [facility] Comment on above: Expected: 10/14/2024 (Approximate), Expires: 08/06/2025 Start: 10-14-2024 End: 08-06-2025 Microalbumin/Creatinine panel in random Urine Microalbumin / creatinine urine ratio Lab Routine Type 2 diabetes mellitus without complication, without long-term current use of insulin ([facility]) Medicare annual wellness visit, subsequent Expected: 10/14/2024 (Approximate), Expires: 08/06/2025 [facility] Comment on above: Expected: 10/14/2024 (Approximate), Expires: 08/06/2025 Start: 10-13-2024 Urine screening for protein Diabetes: Urine Protein Screening [facility] Start: 08-12-2024 Screening for malign ant neoplasm of breast Mammogram [facility] Start: 08-06-2024 End: 08-06-2024 Patient encounter procedure 08/06/2024 2:15 PM EST Office Visit [facility] [address] [facility] [address] [place] [address] Marco Brock MD [address] [facility] [address] [place] [address] Arrived [facility] Comment on above: Arrived Start: 08-06-2024 Medicare Annual Wellness (AWV) Medicare Annual Wellness (AWV) [facility] Start: 08-06-2024 End: 10-04-2025 MG Breast - bilateral Screening Bilateral screening mammogram Imaging Routine Encounter for screening mammogram for malignant neoplasm of breast Expected: 08/06/2024, Expires: 10/04/2025 [facility] Work Phone: Comment on above: Expected: 08/06/2024 , Expires: 10/04/2025 Start: 08-04-2024 End: 08-04-2024 Patient encounter procedure 08/04/2024 11:00 AM EST Office Visit [facility] [address] [place] [place] [address] Marco Brock MD [address] [place] [address] [facility] Start: 06-22-2024 End: 06-22-2024 Patient encounter procedure 06/22/2024 1:15 PM EST Office Visit [facility] [address] [facility] [address] [place] [address] Marco Brock MD [address] [facility] [address] [place] [address] [facility] Start: 05-05-2024 Hemoglobin A1c measurement Diabetes: Hemoglobin A1C [facility] Start: 03-22-2024 Glaucoma screening Diabetes: R etinopathy Screening [facility] Start: 03-22-2024 Influenza vaccination Influenza Vacc ine (#1) [facility] Start: 11-16-2023 Urine screening for protein Diabetes: Urine Protein Screening [facility] Start: 11-05-2023 Hemoglobin A1c measurement Diabetes: Hemoglobin A1C [facility] Start: 1950 Screening for malign ant neoplasm of colon [facility] Start: 1950 Screening for malign ant neoplasm of lung Lung Cancer Screening Shared Decision Making [facility] Immunizations Immunization Date Immunization Notes [facility] Provider [facility] 08-06-2024 Influenza, High-dose Seasonal, Quadrivalent, Preservative Free Marco Brock MD Work Phone: [facility] 08-06-2024 influenza virus vacc ine, unspecified formulation Marco Brock MD Work Phone: [facility] 06-25-2023 Influenza, High-dose Seasonal, Quadrivalent, Preservative Free Sarah Jimenez AUTHORIZER Work Phone: [facility] 06-25-2023 influenza virus vacc ine, unspecified formulation Latesha Saturday 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 Work Phone: [facility] 02-12-2023 zoster vaccine recombinant K carlos Jimenez AUTHORIZER Work Phone: [facility] 10-08-2022 zoster vaccine recombinant K carlos Jimenez AUTHORIZER Work Phone: [facility] 05-17-2022 influenza, high dose seasonal, preservative-free Sarah Jimenez AUTHORIZER Work Phone: [facility] 05-02-2021 influenza, high dose seasonal, preservative-free Sarah Jimenez AUTHORIZER Work Phone: [facility] 04-21-2020 influenza, high dose seasonal, preservative-free Sarah Jimenez AUTHORIZER Work Phone: [facility] 04-21-2020 Influenza, High-dose Seasonal, Quadrivalent, Preservative Free Sarah Jimenez AUTHORIZER Work Phone: [facility] 05-04-2019 influenza, high dose seasonal, preservative-free Sarah Jimenez AUTHORIZER Work Phone: [facility] 05-04-2019 Influenza, High-dose Seasonal, Quadrivalent, Preservative Free Sarah Jimenez AUTHORIZER Work Phone: [facility] 12-24-2017 pneumococcal polysaccharide vaccine, 23 valent Sarah Jimenez AUTHORIZER Work Phone: [facility] 11-26-2016 pneumococcal conjuga te vaccine, 13 valent Sarah Jimenez AUTHORIZER Work Phone: [facility] 05-03-2016 influenza, injectabl e, quadrivalent, contains preservative Sarah Jimenez AUTHORIZER Work Phone: [facility] 05-03-2016 influenza, injectabl e, quadrivalent, preservative free Sarah Jimenez AUTHORIZER Work Phone: [facility] Payers Date Payer Category Payer Private Health Insurance [id number] 2016 Medicare [id number] 1959 Medicare [id number] 1958 Unknown [id number] 1950 Unknown [id number] 1950 Unknown [id number] 1950 Unknown [id number] 1950 Unknown [id number] [id number] 1950 Unknown [id number] [id number] 1950 Unknown [id number] Social History Date Type Detail Facility Start: 12-13-2022 Tobacco smoking status NDIS Ex-smoke r [facility] Start: 11-22-1975 End: 11-22-2021 History of tobacco use Current smoker [facility] Start: 11-22-1975 End: 11-22-2021 History of tobacco use Cigarette Smoker [facility] Start: 12-13-2022 End: 03-11-2023 Cigarettes smoked current (pack per day) - Reported 0.5 [facility] Start: 12-13-2022 Tobacco use and exposure Smoke less tobacco non-user [facility] Start: 08-29-2023 End: 02-22-2025 Alcohol intake Lifetime non-drinker (finding) [facility] Start: 03-11-2023 End: 02-22-2025 Humiliation, Afraid, Rape, and Kick questionnaire [HARK] [facility] Within the last year , have you been afraid of your partner or ex-partner? No [facility] Are you now , , , , never or living with a partner? [facility] How often to you hav e a drink containing alcohol? Never [facility] How many standard dr inks containing alcohol do you have on a typical day? Patient does not drink [facility] Do you feel stress - tense, restless, nervous, or anxious, or unable to sleep at night because your mind is troubled all the time - these days [OSQ] Not at all [facility] (I/We) worried aleks er (my/our) food would run out before (I/we) got money to buy more. Never true [facility] Start: 12-13-2022 Tobacco Comment She quit for a year, stress from work caused her to start back up. She is out of cigarretes right now and is not going to buy any more. [facility] Start: 1950 Sex Assigned At Not on file [facility] Medical Equipment Procedure Code Equipment Code Equipment Origin al Text Equipment Identifier Dates Use as instructed [id number] Start: 01-20-2025 End: 01-20-2026 Functional Status Date Assessment Result Facility 02-22-2025 Patient Health Quest ionnaire 2 item (PHQ-2) [Reported] [facility] Clinical Notes 08-29-2023 to 02-22-2025 Marco Brock MD - 02/22/2025 1:26 PM EDNatalia Brock MD - 02/22/2025 1:24 PM Adonay Brock MD - 02/22/2025 1:00 PM EDTTelephone Encounter - VENICE Sears - 01/11/2025 5:16 PM EDT Note Date & Type Note Facility 02-22-2025 History of Presen t illness Narrative Associated Problem(s): Microalbuminuria due to type 2 diabetes mellitus (HCC) No Tobacco use Follow ADA 1800 diet low carbohydrate Continue Med Compliance Goal LDL less than 100 Goal BP 130/80 Goal HgbA1c < 7.0% Monitor Feet, monitor for infection Needs Exercise Yearly eye exams Prior to your visit today we reviewed your chart and outlined testing and treatment needed for your care. Reviewed poissble complications of diabetes including, loss of vision, kidney failure and increased risk of heart attacks and stroke. We made recommendations on how to control your blood sugars, and minimize your risk of these complications. We discussed your current barriers to a healthy living and importance of healthy diet and exercise. A1c is 5.6 Previous was 5.8 Associated Problem(s): Adjustment disorder with anxiety Patient's Medicine is effective at controlling symptoms at current dose and frequency. PDMP reviewed with no evidence of overuse and abuse D/W patient to avoid use of benzodiazepines when consuming alcohol Advised against operating heavy machinery and driving long distances while on medicines. Images from the original note were not included. HPI Diabetes Additional comments: Last 11.26 Last edited by Emani Dos Santos MA on 02/22/2025 7:03 AM. Subjective Patient ID: Ashwin Mora is a 74 y.o. female who presents for Diabetes (Last 5.). Pt will be getting a partial for her teeth Diabetes She presents for her follow-up diabetic visit. She has type 2 diabetes mellitus. No MedicAlert identification noted. Her disease course has been worsening. Pertinent negatives for hypoglycemia include no confusion, dizziness, headaches or nervousness/anxiousness. Pertinent negatives for diabetes include no chest pain. There are no hypoglycemic complications. There are no diabetic complications. Risk factors for coronary artery disease include diabetes mellitus and hypertension. She is following a diabetic diet. Meal planning includes avoidance of concentrated sweets. She has not had a previous visit with a dietitian. She rarely participates in exercise. Her home blood glucose trend is increasing steadily. She does not see a parent trainer.Eye exam is current. Over the past 2 weeks, how often have you been bothered by any of the following problems? Little interest or pleasure in doing things: Not at all Feeling down, depressed, or hopeless: Not at all Patient Health Questionnaire-2 Score: 0 Current Outpatient Medications on File Prior to Visit Medication Sig Dispense Refill amLODIPine (Norvasc) 10 MG tablet Take 1 tablet (10 mg) by mouth Daily 90 tablet 3 atorvastatin (Lipitor) 40 MG tablet Take 1 tablet (40 mg) by mouth in the morning. 30 tablet 11 Thrpilb-Eiqrtleuesu-Bypxhvetgj (Breztri Aerosphere) 160-9-4.8 MCG/ACT aerosol Inhale 1 puff in the morning and 1 puff before bedtime. 190 g 0 cholecalciferol (Vitamin D-3) 25 MCG (1000 UT) capsule Take 1,000 Units by mouth in the morning. denosumab (Prolia) 60 MG/ML solution prefilled syringe Inject 60 mg under the skin every 6 (six) months. empagliflozin (Jardiance) 25 MG Take 1 tablet (25 mg) by mouth in the morning. 90 tablet 3 folic acid (Folvite) 400 MCG tablet Take 0.4 mg by mouth in the morning. furosemide (Lasix) 20 MG tablet Take 1 tablet (20 mg) by mouth Daily 100 tablet 3 insulin glargine (Lantus SoloStar) 100 UNIT/ML pen Inject 10 Units under the skin at bedtime 9 mL 3 insulin pen needle (AUM Pen Needle) 32G x 6 mm misc Use as instructed 100 each 12 ipratropium-albuterol (Duo-Neb) 0.5-2.5 mg/3 mL nebulizer solution Take 3 mL by nebulization in the morning and 3 mL at noon and 3 mL in the evening and 3 mL before bedtime. 360 mL 5 omega-3 (Fish Oil) 1200 MG capsule Take 1,200 mg by mouth in the morning. Potassium 99 MG tablet Take 1 tablet by mouth 1 (one) time each day at the same time. semaglutide (Ozempic, 1 MG/DOSE,) 4 MG/3ML solution pen-injector Inject 1 mg under the skin 1 (one) time per week 1 each 0 zinc 30 MG tablet Take 1 tablet by mouth 1 (one) time each day at the same time. [DISCONTINUED] ALPRAZolam (Xanax) 0.25 MG tablet Take 1 tablet (0.25 mg) by mouth every 12 (twelve) hours 60 tablet 0 No current facility-administered medications on file prior to visit. I have reviewed and reconciled the history and medication list with the patient today. No Known Allergies Social History Tobacco Use Smoking status: Former Current packs/day: 0.00 Average packs/day: 0.5 packs/day for 46.0 years (23.0 ttl pk-yrs) Types: Cigarettes Start date: 11/22/1975 Quit date: 11/22/2021 Years since quittin.2 Smokeless tobacco: Never Tobacco comments: She quit for a year, stress from work caused her to start back up. She is out of cigarPowa Technologieses right now and is not going to buy any more. Substance Use Topics Alcohol use: Never Drug use: Defer Family History Problem Relation Name Age of Onset Liver cancer Mother Diabetes Mother Cancer Mother Hypertension Father Heart disease Father Thyroid disease Mother's Sister Diabetes Sibling Past Medical History: Diagnosis Date Asthmatic bronchitis (HCC) Ativan use. 2011 Disease: Elevated BP and stress reaction Diabetes mellitus type 2 without complication HTN (hypertension) Past Surgical History: Procedure Laterality Date SECTION, LOW TRANSVERSE HEART CATH 2009 HYSTERECTOMY Visit Vitals BP 130/78 Pulse 65 Ht 4' 11 Wt 144 lb SpO2 95% BMI 29.08 kg/m Smoking Status Former BSA 1.65 m Review of Systems Respiratory: Negative for shortness of breath. Cardiovascular: Negative for chest pain and palpitations. Gastrointestinal: Negative for nausea. Neurological: Negative for dizziness and headaches. Psychiatric/Behavioral: Negative for confusion. The patient is not nervous/anxious. Objective Physical Exam Constitutional: General: She is not in acute distress. Appearance: Normal appearance. HENT: Head: Normocephalic. Neck: Vascular: No carotid bruit. Cardiovascular: Rate and Rhythm: Normal rate and regular rhythm. Pulmonary: Effort: Pulmonary effort is normal. No respiratory distress. Breath sounds: Normal breath sounds. Neurological: General: No focal deficit present. Mental Status: She is alert and oriented to person, place, and time. Psychiatric: Mood and Affect: Mood normal. Assessment/Plan Problem List Items Addressed This Visit Adjustment disorder with anxiety Patient's Medicine is effective at controlling symptoms at current dose and frequency. PDMP reviewed with no evidence of overuse and abuse D/W patient to avoid use of benzodiazepines when consuming alcohol Advised against operating heavy machinery and driving long distances while on medicines. Relevant Medications ALPRAZolam (Xanax) 0.25 MG tablet Microalbuminuria due to type 2 diabetes mellitus (HCC) - Primary No Tobacco use Follow ADA 1800 diet low carbohydrate Continue Med Compliance Goal LDL less than 100 Goal BP 130/80 Goal HgbA1c < 7.0% Monitor Feet, monitor for infection Needs Exercise Yearly eye exams Prior to your visit today we reviewed your chart and outlined testing and treatment needed for your care. Reviewed poissble complications of diabetes including, loss of vision, kidney failure and increased risk of heart attacks and stroke. We made recommendations on how to control your blood sugars, and minimize your risk of these complications. We discussed your current barriers to a healthy living and importance of healthy diet and exercise. A1c is 5.6 Previous was 5.8 Follow up in about 3 months (around 05/25/2025) for Anxiety Meds F/U. documented in this encounter [facility] 01-11-2025 Telephone encount er Note OARRS reviewed, Rx sent into patient's pharmacy. [facility] 01-11-2025 Miscellaneous Notes Formattin g of this note might be different from the original. OARRS reviewed, Rx sent into patient's pharmacy. documented in this encounter [facility] 11-23-2024 Telephone encount er Note OARRS reviewed, Rx sent into patient's pharmacy. [facility] 11-23-2024 Miscellaneous Notes Formattin g of this note might be different from the original. OARRS reviewed, Rx sent into patient's pharmacy. ALPRAZolam (Xanax) 0.25 MG tablet [place] documented in this encounter [facility] 11-23-2024 Telephone encount er Note ALPRAZolam (Xanax) 0.25 MG tablet [place] [facility] 10-26-2024 History of Presen t illness Narrative Associated Problem(s): Type 2 diabetes mellitus with other specified complication No Tobacco use Follow ADA 1800 diet low carbohydrate Continue Med Compliance Goal LDL less than 100 Goal BP 130/80 Goal HgbA1c < 7.0% Monitor Feet, monitor for infection Needs Exercise Yearly eye exams Prior to your visit today we reviewed your chart and outlined testing and treatment needed for your care. Reviewed poissble complications of diabetes including, loss of vision, kidney failure and increased risk of heart attacks and stroke. We made recommendations on how to control your blood sugars, and minimize your risk of these complications. We discussed your current barriers to a healthy living and importance of healthy diet and exercise. Associated Problem(s): Benign essential hypertension (CMS/HCC) Our specific goals, for your hypertension, is to keep your blood pressure less than 140/90, and the importance of weight control. We made recommendations on how to control your blood pressure, and minimize your risk of these copmplications. We also discussed your current barriers to a healthy living and importance of healthy diet and exercise. Prior to your visit today we have reviewed your chart and formed a plan to assist with providing you the best possible care. We reviewed the possible complications of hypertension including, stroke, heart failure and kidney impairment. In addition, we discussed your medications, the importance of taking them as prescribed. 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 Reviewed poissble complications of diabetes including, loss of vision, kidney failure and increased risk of heart attacks and stroke. We made recommendations on how to control your blood sugars, and minimize your risk of these complications. We discussed your current barriers to a healthy living and importance of healthy diet and exercise. Associated Problem(s): Adjustment disorder with anxiety (CMS/HCC) Patient's Medicine is effective at controlling symptoms at current dose and frequency. PDMP reviewed with no evidence of overuse and abuse D/W patient to avoid use of benzodiazepines when consuming alcohol Advised against operating heavy machinery and driving long distances while on medicines. Images from the original note were not included. HPI Anxiety Additional comments: Pt needs to complete all labs and micro Last edited by Emani Dos Santos MA on 10/26/2024 7:22 AM. Subjective Patient ID: Ashwin Mora is a 74 y.o. female who presents for Anxiety (Pt needs to complete all labs and micro). Pt has no concerns Anxiety Presents for follow-up visit. Patient reports no chest pain, confusion, dizziness, nausea, nervous/anxious behavior, palpitations or shortness of breath. Symptoms occur constantly. The severity of symptoms is mild. The quality of sleep is fair. Nighttime awakenings: occasional. Current Outpatient Medications on File Prior to Visit Medication Sig Dispense Refill insulin glargine (Lantus SoloStar) 100 UNIT/ML pen Inject 10 Units under the skin at bedtime 9 mL 3 ALPRAZolam (Xanax) 0.25 MG tablet Take 1 tablet (0.25 mg) by mouth every 12 (twelve) hours 60 tablet 0 amLODIPine (Norvasc) 10 MG tablet Take 1 tablet (10 mg) by mouth Daily 90 tablet 3 atorvastatin (Lipitor) 40 MG tablet Take 1 tablet (40 mg) by mouth in the morning. 30 tablet 11 Bxzkzrf-Gbmwjesyuhs-Hhdesuinmj (Breztri Aerosphere) 160-9-4.8 MCG/ACT aerosol Inhale 1 puff in the morning and 1 puff before bedtime. 190 g 0 cholecalciferol (Vitamin D-3) 25 MCG (1000 UT) capsule Take 1,000 Units by mouth in the morning. denosumab (Prolia) 60 MG/ML solution prefilled syringe Inject 60 mg under the skin every 6 (six) months. empagliflozin (Jardiance) 25 MG Take 1 tablet (25 mg) by mouth in the morning. 90 tablet 3 folic acid (Folvite) 400 MCG tablet Take 0.4 mg by mouth in the morning. furosemide (Lasix) 20 MG tablet Take 1 tablet (20 mg) by mouth Daily 100 tablet 3 ipratropium-albuterol (Duo-Neb) 0.5-2.5 mg/3 mL nebulizer solution Take 3 mL by nebulization in the morning and 3 mL at noon and 3 mL in the evening and 3 mL before bedtime. 360 mL 5 omega-3 (Fish Oil) 1200 MG capsule Take 1,200 mg by mouth in the morning. Potassium 99 MG tablet Take 1 tablet by mouth 1 (one) time each day at the same time. semaglutide (Ozempic, 1 MG/DOSE,) 4 MG/3ML solution pen-injector Inject 1 mg under the skin 1 (one) time per week 1 each 0 zinc 30 MG tablet Take 1 tablet by mouth 1 (one) time each day at the same time. No current facility-administered medications on file prior to visit. I have reviewed and reconciled the history and medication list with the patient today. No Known Allergies Social History Tobacco Use Smoking status: Former Current packs/day: 0.00 Average packs/day: 0.5 packs/day for 46.0 years (23.0 ttl pk-yrs) Types: Cigarettes Start date: 11/22/1975 Quit date: 11/22/2021 Years since quittin.9 Smokeless tobacco: Never Tobacco comments: She quit for a year, stress from work caused her to start back up. She is out of medidametrics right now and is not going to buy any more. Substance Use Topics Alcohol use: Never Drug use: Defer Family History Problem Relation Name Age of Onset Liver cancer Mother Diabetes Mother Cancer Mother Hypertension Father Heart disease Father Thyroid disease Mother's Sister Diabetes Sibling Past Medical History: Diagnosis Date Asthmatic bronchitis (CMS/HCC) Ativan use. 2012 Disease: Elevated BP and stress reaction Diabetes mellitus type 2 without complication HTN (hypertension) (CMS/HCC) Past Surgical History: Procedure Laterality Date SECTION, LOW TRANSVERSE HEART CATH 2009 HYSTERECTOMY Visit Vitals BP 122/84 Pulse 88 Ht 4' 11 Wt 144 lb SpO2 93% BMI 29.08 kg/m Smoking Status Former BSA 1.65 m Review of Systems Respiratory: Negative for shortness of breath. Cardiovascular: Negative for chest pain and palpitations. Gastrointestinal: Negative for nausea. Neurological: Negative for dizziness. Psychiatric/Behavioral: Negative for confusion. The patient is not nervous/anxious. Objective Physical Exam Constitutional: General: She is not in acute distress. Appearance: Normal appearance. HENT: Head: Normocephalic. Cardiovascular: Rate and Rhythm: Normal rate and regular rhythm. Pulmonary: Effort: Pulmonary effort is normal. No respiratory distress. Breath sounds: Normal breath sounds. Neurological: General: No focal deficit present. Mental Status: She is alert and oriented to person, place, and time. Psychiatric: Mood and Affect: Mood normal. Assessment/Plan Problem List Items Addressed This Visit Adjustment disorder with anxiety (CMS/HCC) - Primary Patient's Medicine is effective at controlling symptoms at current dose and frequency. PDMP reviewed with no evidence of overuse and abuse D/W patient to avoid use of benzodiazepines when consuming alcohol Advised against operating heavy machinery and driving long distances while on medicines. 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 Reviewed poissble complications of diabetes including, loss of vision, kidney failure and increased risk of heart attacks and stroke. We made recommendations on how to control your blood sugars, and minimize your risk of these complications. We discussed your current barriers to a healthy living and importance of healthy diet and exercise. Benign essential hypertension ([facility]) Our specific goals, for your hypertension, is to keep your blood pressure less than 140/90, and the importance of weight control. We made recommendations on how to control your blood pressure, and minimize your risk of these copmplications. We also discussed your current barriers to a healthy living and importance of healthy diet and exercise. Prior to your visit today we have reviewed your chart and formed a plan to assist with providing you the best possible care. We reviewed the possible complications of hypertension including, stroke, heart failure and kidney impairment. In addition, we discussed your medications, the importance of taking them as prescribed. DASH diet handouts Type 2 diabetes mellitus with other specified complication No Tobacco use Follow ADA 1800 diet low carbohydrate Continue Med Compliance Goal LDL less than 100 Goal BP 130/80 Goal HgbA1c < 7.0% Monitor Feet, monitor for infection Needs Exercise Yearly eye exams Prior to your visit today we reviewed your chart and outlined testing and treatment needed for your care. Reviewed poissble complications of diabetes including, loss of vision, kidney failure and increased risk of heart attacks and stroke. We made recommendations on how to control your blood sugars, and minimize your risk of these complications. We discussed your current barriers to a healthy living and importance of healthy diet and exercise. Follow up in about 4 months (around 02/25/2025) for Anxiety Meds F/U. documented in this encounter [facility] 09-30-2024 Telephone encount er Note Xanax already sent [facility] 09-30-2024 Miscellaneous Notes Formattin g of this note might be different from the original. Xanax already sent documented in this encounter [facility] 09-30-2024 Telephone encount er Note OARRS reviewed, Rx sent into patient's pharmacy. [facility] 09-30-2024 Miscellaneous Notes Formattin g of this note might be different from the original. OARRS reviewed, Rx sent into patient's pharmacy. documented in this encounter [facility] 08-06-2024 History of Presen t illness Narrative Associated Problem(s): Chronic obstructive pulmonary disease, unspecified (CMS/HCC) This is a chronic medical condition that is stable since last assessment. No changes in treatment are suggested at this time. Continue Current meds. Associated Problem(s): Adjustment disorder with anxiety (CMS/HCC) Patient's Medicine is effective at controlling symptoms at current dose and frequency. PDMP reviewed with no evidence of overuse and abuse D/W patient to avoid use of benzodiazepines when consuming alcohol Advised against operating heavy machinery and driving long distances while on medicines. Associated Problem(s): Hyperlipidemia, unspecified (CMS/HCC) This is a chronic medical condition that is stable since last assessment. No changes in treatment are suggested at this time. Continue Current meds. 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 We made recommendations on how to control your blood pressure, and minimize your risk of these copmplications. We also discussed your current barriers to a healthy living and importance of healthy diet and exercise. Prior to your visit today we have reviewed your chart and formed a plan to assist with providing you the best possible care. We reviewed the possible complications of hypertension including, stroke, heart failure and kidney impairment. In addition, we discussed your medications, the importance of taking them as prescribed. DASH diet handouts Associated Problem(s): Medicare annual wellness visit, subsequent Colonoscopy every 10 years or Cologuard every 3 years ages 50-75 Flu Vaccine yearly Pneumovax and Prevnar Mammo yearly for women and PSA yearly for men Labs/Screening yearly to rule out Diabetes, Chronic Kidney disease and liver disease Hepatitis Screen forat risk populations Shingles vaccine after 65 if indicated Tetanus Vaccine every 10 years Lipids yearly under the age of 75 If Smoking history: one time CT scan of chest and Ultrasound of Aorta to screen for Anuerysm Associated Problem(s): Type 2 diabetes mellitus with other specified complication (CMS/HCC) No Tobacco use Follow ADA 1800 diet low carbohydrate Continue Med Compliance Goal LDL less than 100 Goal BP 130/80 Goal HgbA1c < 7.0% Monitor Feet, monitor for infection Needs Exercise Yearly eye exams Prior to your visit today we reviewed your chart and outlined testing and treatment needed for your care. Reviewed poissble complications of diabetes including, loss of vision, kidney failure and increased risk of heart attacks and stroke. We made recommendations on how to control your blood sugars, and minimize your risk of these complications. We discussed your current barriers to a healthy living and importance of healthy diet and exercise. Images from the original note were not included. Subjective : Chief Complaint: Ashwin Mora is an 74 y.o. female here for an annual wellness visit. No hypoglycemic episodes I have reviewed and reconciled the history and medication list with the patient today. Current Outpatient Medications Medication Sig Dispense Refill insulin glargine (Lantus SoloStar) 100 UNIT/ML pen Inject 10 Units under the skin at bedtime 9 mL 3 ALPRAZolam (Xanax) 0.25 MG tablet Take 1 tablet (0.25 mg) by mouth every 12 (twelve) hours 60 tablet 0 amLODIPine (Norvasc) 10 MG tablet TAKE 1 TABLET BY MOUTH ONCE DAILY 90 tablet 3 atorvastatin (Lipitor) 40 MG tablet Take 1 tablet (40 mg) by mouth in the morning. 30 tablet 11 Pbvkwnt-Fxyxanpqlpf-Kynvokhpog (Breztri Aerosphere) 160-9-4.8 MCG/ACT aerosol Inhale 1 puff in the morning and 1 puff before bedtime. 190 g 0 cholecalciferol (Vitamin D-3) 25 MCG (1000 UT) capsule Take 1,000 Units by mouth in the morning. denosumab (Prolia) 60 MG/ML solution prefilled syringe Inject 60 mg under the skin every 6 (six) months. empagliflozin (Jardiance) 25 MG Take 1 tablet (25 mg) by mouth in the morning. 90 tablet 3 folic acid (Folvite) 400 MCG tablet Take 0.4 mg by mouth in the morning. furosemide (Lasix) 20 MG tablet TAKE 1 TABLET BY MOUTH ONCE DAILY 100 tablet 3 ipratropium-albuterol (Duo-Neb) 0.5-2.5 mg/3 mL nebulizer solution Take 3 mL by nebulization in the morning and 3 mL at noon and 3 mL in the evening and 3 mL before bedtime. 360 mL 5 omega-3 (Fish Oil) 1200 MG capsule Take 1,200 mg by mouth in the morning. Potassium 99 MG tablet Take 1 tablet by mouth 1 (one) time each day at the same time. semaglutide (Ozempic, 1 MG/DOSE,) 4 MG/3ML solution pen-injector Inject 1 mg under the skin 1 (one) time per week zinc 30 MG tablet Take 1 tablet by mouth 1 (one) time each day at the same time. No current facility-administered medications for this visit. Review of Systems Constitutional: Negative for chills, fatigue, fever and unexpected weight change. Respiratory: Negative for cough. Cardiovascular: Negative for chest pain. Gastrointestinal: Negative for abdominal pain, blood in stool, constipation, diarrhea, nausea and vomiting. Genitourinary: Negative for dysuria, enuresis, frequency and hematuria. Musculoskeletal: Negative for back pain. Neurological: Negative for dizziness, tremors, syncope, facial asymmetry and speech difficulty. Psychiatric/Behavioral: Negative for agitation, behavioral problems, confusion and dysphoric mood. The patient is not nervous/anxious. List of current healthcare providers: Patient Care Team: Marco Brock MD as PCP - General (Family Medicine) Marco Brock MD as PCP - [facility] [employer] Medicare Annual Visit Over the past 2 weeks, how often have you been bothered by any of the following problems? Little interest or pleasure in doing things: Not at all Feeling down, depressed, or hopeless: Not at all Patient Health Questionnaire-2 Score: 0 Munoz Fall Risk History of Falling, Immediate or Within 3 Months: No Health Risk Assessment Form Do you need help eating, bathing, using the toilet, dressing, or getting around your home?: No Can you prepare your own meals?: Yes Can you do your own housework without help?: Yes Can you shop for groceries or clothes without help?: Yes Do you exercise for about 20 minutes 3 or more days a week?: Yes How confident are you that you can control and manage most of your health problems?: Very confident Can you mange your money, credit cards and accounts, pay bills and taxes?: Yes Vision Screening: Yes, no gross abnormalities Hearing Screening: Yes, no gross abnormalities Cognitive Screening Self Assessment: No overt cognitive deficiency is apparent by direct observation Three Word Registration: Banana, Herron, Chair Clock Drawing: Normal Clock - 2 Three Word Recall: All 3 words correct - 3 Total Score (0-5 Points): 5 Pain Assessment Pain Score: 0 - No pain Advance Care Planning Do you have a living will?: Yes Do you have a medical power of civil attorney?: Yes Objective : BP 126/84 Pulse 86 Ht 4' 11 Wt 139 lb SpO2 95% BMI 28.07 kg/m No results found. Physical Exam Constitutional: General: She is not in acute distress. Appearance: Normal appearance. HENT: Head: Normocephalic. Neck: Vascular: No carotid bruit. Cardiovascular: Rate and Rhythm: Normal rate and regular rhythm. Pulmonary: Effort: Pulmonary effort is normal. No respiratory distress. Breath sounds: Normal breath sounds. Musculoskeletal: General: No swelling. Right lower leg: No edema. Left lower leg: No edema. Neurological: General: No focal deficit present. Mental Status: She is alert and oriented to person, place, and time. Psychiatric: Mood and Affect: Mood normal. Office Visit on 08/06/2024 Component Date Value Ref Range Status Hemoglobin A1C 08/06/2024 5.8 Final Assessment/Plan : The following health maintenance schedule was reviewed with the patient and provided in printed form in the after visit summary: Health Maintenance Topic Date Due Diabetes: Urine Protein Screening 11/16/2023 Diabetes: Retinopathy Screening 03/22/2024 Influenza Vaccine (1) 03/22/2024 Medicare Annual Wellness (AWV) 08/06/2024 Mammogram 08/12/2024 Diabetes: Hemoglobin A1C 11/04/2024 Colorectal Cancer Screening 02/11/2027 Pneumococcal Vaccine: 65+ Years Completed Advance Care Planning Patient willing to discuss ACP. If in place, renew periodically. If not in place, recommend obtaining ACP. 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) Relevant Medications amLODIPine (Norvasc) 10 MG tablet Other Relevant Orders CBC and differential Comprehensive metabolic panel Hyperlipidemia, unspecified (CMS/HCC) Relevant Orders CBC and differential Comprehensive metabolic panel Lipid panel Type 2 diabetes mellitus without complication (CMS/HCC) Relevant Orders POCT Glycated hemoglobin, total (Completed) CBC and differential Comprehensive metabolic panel Microalbumin / creatinine urine ratio Other Visit Diagnoses Routine general medical examination at health care facility - Primary Encounter for screening mammogram for malignant neoplasm of breast Relevant Orders Bilateral screening mammogram Encounter for immunization Relevant Orders Influenza, high-dose seasonal, quadrivalent, PF (UPR145) (Fluzone High Dose [place] 0.7mL dose) (Completed) Abnormal glucose tolerance test Relevant Orders Comprehensive metabolic panel Medicare annual wellness visit, subsequent Relevant Orders CBC and differential Comprehensive metabolic panel Lipid panel Microalbumin / creatinine urine ratio Orders Placed This Encounter Procedures Bilateral screening mammogram Standing Status: Future Number of Occurrences: 1 Standing Expiration Date: 10/04/2025 Order Specific Question: Reason for exam: Answer: yearly Influenza, high-dose seasonal, quadrivalent, PF (QBD177) (Fluzone High Dose Quad [place] 0.7mL dose) CBC and differential Standing Status: Future Number of Occurrences: 1 Standing Expiration Date: 08/06/2025 Order Specific Question: Print requisition? Answer: No Comprehensive metabolic panel Standing Status: Future Number of Occurrences: 1 Standing Expiration Date: 08/06/2025 Order Specific Question: Print requisition? Answer: No Lipid panel Standing Status: Future Number of Occurrences: 1 Standing Expiration Date: 08/06/2025 Microalbumin / creatinine urine ratio Standing Status: Future Number of Occurrences: 1 Standing Expiration Date: 08/06/2025 Order Specific Question: Print requisition? Answer: No POCT Glycated hemoglobin, total Electronically signed by Marco Brock MD on August 06, 2024 documented in this encounter [facility] 06-22-2024 History of Presen t illness Narrative Associated Problem(s): Osteoporosis (CMS/HCC) Reminded the patient how Prolia works in the body to help with bone density. Also reminded pt of potential s/e of the medication including osteonecrosis of jaw and atypical hip fractures. Reviewed importance of routine dental care. Advised pt of the need to continue with the treatment to avoid vertebral fractures from discontinuing the medication. Encouraged adequate calcium and vitamin D intake. Patient voiced understanding. Prolia given. Pt tolerated the injection well. Follow up in 6 months for next injection, or sooner should she have any concerns. Associated Problem(s): Adjustment disorder with anxiety (CMS/HCC) Patient's Medicine is effective at controlling symptoms at current dose and frequency. PDMP reviewed with no evidence of overuse and abuse D/W patient to avoid use of benzodiazepines when consuming alcohol Advised against operating heavy machinery and driving long distances while on medicines. Images from the original note were not included. HPI prolia injection Additional comments: This is a buy and bill Last edited by Emani Dos Santos MA on 06/22/2024 7:50 AM. Subjective Patient ID: Ashwin Mora is a 74 y.o. female who presents for prolia injection (This is a buy and bill ). Pt is here for her prolia inj, this is a buy and bill Anxiety is all the time. Thinks about grandkids Current Outpatient Medications on File Prior to Visit Medication Sig Dispense Refill insulin glargine (Lantus SoloStar) 100 UNIT/ML pen Inject 10 Units under the skin at bedtime 9 mL 3 amLODIPine (Norvasc) 10 MG tablet TAKE 1 TABLET BY MOUTH ONCE DAILY 90 tablet 3 atorvastatin (Lipitor) 40 MG tablet Take 1 tablet (40 mg) by mouth in the morning. 30 tablet 11 Bpwseqk-Kddjymlrgli-Sewftbueim (Breztri Aerosphere) 160-9-4.8 MCG/ACT aerosol Inhale 1 puff in the morning and 1 puff before bedtime. 190 g 0 cholecalciferol (Vitamin D-3) 25 MCG (1000 UT) capsule Take 1,000 Units by mouth in the morning. denosumab (Prolia) 60 MG/ML solution prefilled syringe Inject 60 mg under the skin every 6 (six) months. empagliflozin (Jardiance) 25 MG Take 1 tablet (25 mg) by mouth in the morning. 90 tablet 3 folic acid (Folvite) 400 MCG tablet Take 0.4 mg by mouth in the morning. furosemide (Lasix) 20 MG tablet TAKE 1 TABLET BY MOUTH ONCE DAILY 100 tablet 3 ipratropium-albuterol (Duo-Neb) 0.5-2.5 mg/3 mL nebulizer solution Take 3 mL by nebulization in the morning and 3 mL at noon and 3 mL in the evening and 3 mL before bedtime. 360 mL 5 metFORMIN (Glucophage) 1000 MG tablet TAKE 1 TABLET BY MOUTH TWICE DAILY 180 tablet 3 omega-3 (Fish Oil) 1200 MG capsule Take 1,200 mg by mouth in the morning. Potassium 99 MG tablet Take 1 tablet by mouth 1 (one) time each day at the same time. semaglutide (Ozempic, 1 MG/DOSE,) 4 MG/3ML solution pen-injector Inject 1 mg under the skin 1 (one) time per week zinc 30 MG tablet Take 1 tablet by mouth 1 (one) time each day at the same time. [DISCONTINUED] ALPRAZolam (Xanax) 0.25 MG tablet Take 1 tablet (0.25 mg) by mouth every 12 (twelve) hours 60 tablet 0 No current facility-administered medications on file prior to visit. I have reviewed and reconciled the history and medication list with the patient today. No Known Allergies Social History Tobacco Use Smoking status: Former Current packs/day: 0.00 Average packs/day: 0.5 packs/day for 46.0 years (23.0 ttl pk-yrs) Types: Cigarettes Start date: 11/22/1975 Quit date: 11/22/2021 Years since quittin.5 Smokeless tobacco: Never Tobacco comments: She quit for a year, stress from work caused her to start back up. She is out of [employer] Technologieses right now and is not going to buy any more. Substance Use Topics Alcohol use: Never Drug use: Defer Family History Problem Relation Name Age of Onset Liver cancer Mother Diabetes Mother Cancer Mother Hypertension Father Heart disease Father Thyroid disease Mother's Sister Diabetes Sibling Past Medical History: Diagnosis Date Asthmatic bronchitis (CMS/HCC) Ativan use. 2012 Disease: Elevated BP and stress reaction Diabetes mellitus type 2 without complication HTN (hypertension) (CMS/HCC) Past Surgical History: Procedure Laterality Date SECTION, LOW TRANSVERSE HEART CATH 2009 HYSTERECTOMY Visit Vitals BP 132/82 Pulse 72 Ht 4' 11 Wt 138 lb SpO2 95% BMI 27.87 kg/m Smoking Status Former BSA 1.61 m Review of Systems Constitutional: Negative for chills and fever. Respiratory: Negative for shortness of breath. Cardiovascular: Negative for chest pain. Gastrointestinal: Positive for constipation. Negative for abdominal pain, diarrhea and nausea. Genitourinary: Negative for dysuria, frequency and hematuria. Psychiatric/Behavioral: The patient is nervous/anxious. Endocrine: Negative for heat intolerance. Objective Physical Exam Constitutional: General: She is not in acute distress. Appearance: Normal appearance. HENT: Head: Normocephalic. Cardiovascular: Rate and Rhythm: Normal rate and regular rhythm. Pulmonary: Effort: Pulmonary effort is normal. No respiratory distress. Breath sounds: Normal breath sounds. Neurological: General: No focal deficit present. Mental Status: She is alert and oriented to person, place, and time. Psychiatric: Mood and Affect: Mood normal. Assessment/Plan Problem List Items Addressed This Visit Adjustment disorder with anxiety (CMS/HCC) Patient's Medicine is effective at controlling symptoms at current dose and frequency. PDMP reviewed with no evidence of overuse and abuse D/W patient to avoid use of benzodiazepines when consuming alcohol Advised against operating heavy machinery and driving long distances while on medicines. Relevant Medications ALPRAZolam (Xanax) 0.25 MG tablet Osteoporosis (CMS/HCC) - Primary Reminded the patient how Prolia works in the body to help with bone density. Also reminded pt of potential s/e of the medication including osteonecrosis of jaw and atypical hip fractures. Reviewed importance of routine dental care. Advised pt of the need to continue with the treatment to avoid vertebral fractures from discontinuing the medication. Encouraged adequate calcium and vitamin D intake. Patient voiced understanding. Prolia given. Pt tolerated the injection well. Follow up in 6 months for next injection, or sooner should she have any concerns. Follow up in about 4 months (around 10/21/2024) for Anxiety Meds F/U. documented in this encounter [facility] 06-15-2024 Telephone encount er Note Insulin sent. [facility] 06-15-2024 Miscellaneous Notes Formattin g of this note might be different from the original. Insulin sent. documented in this encounter [facility] 05-20-2024 Telephone encount er Note OARRS reviewed, Rx sent into patient's pharmacy. [facility] 05-20-2024 Miscellaneous Notes Formattin g of this note might be different from the original. OARRS reviewed, Rx sent into patient's pharmacy. documented in this encounter [facility] 08-29-2023 History of Presen t illness Narrative Subjective Patient ID: Ashwin Mora is a 73 y.o. female who presents for chest cold. Pt did have sinus, headache sore throat pt is still coughing sore throat feels as if it has gone into chest now little phlegm milky color Pt has used cough drops tylenol daytime nose spray took a breathing treatment Current Outpatient Medications on File Prior to Visit Medication Sig Dispense Refill ALPRAZolam (Xanax) 0.25 MG tablet Take 1 tablet (0.25 mg) by mouth every 12 (twelve) hours 60 tablet 0 amLODIPine (Norvasc) 10 MG tablet TAKE 1 TABLET BY MOUTH ONCE DAILY 90 tablet 3 atorvastatin (Lipitor) 40 MG tablet Take 1 tablet (40 mg) by mouth in the morning. 30 tablet 11 cholecalciferol (Vitamin D-3) 25 MCG (1000 UT) capsule Take 1,000 Units by mouth in the morning. denosumab (Prolia) 60 MG/ML solution prefilled syringe Inject 60 mg under the skin every 6 (six) months. empagliflozin (Jardiance) 25 MG Take 1 tablet (25 mg) by mouth in the morning. 90 tablet 3 folic acid (Folvite) 400 MCG tablet Take 0.4 mg by mouth in the morning. furosemide (Lasix) 20 MG tablet TAKE 1 TABLET BY MOUTH ONCE DAILY 100 tablet 3 insulin glargine (Lantus SoloStar) 100 UNIT/ML pen Inject 10 Units under the skin at bedtime 3 mL 11 metFORMIN (Glucophage) 1000 MG tablet TAKE 1 TABLET BY MOUTH TWICE DAILY 180 tablet 3 omega-3 (Fish Oil) 1200 MG capsule Take 1,200 mg by mouth in the morning. Potassium 99 MG tablet Take 1 tablet by mouth 1 (one) time each day at the same time. semaglutide (Ozempic, 1 MG/DOSE,) 4 MG/3ML solution pen-injector Inject 1 mg under the skin 1 (one) time per week zinc 30 MG tablet Take 1 tablet by mouth 1 (one) time each day at the same time. No current facility-administered medications on file prior to visit. No Known Allergies Social History Tobacco Use Smoking status: Former Packs/day: 0.50 Years: 46.00 Additional pack years: 0.00 Total pack years: 23.00 Types: Cigarettes Start date: 11/22/1975 Quit date: 11/22/2021 Years since quittin.7 Smokeless tobacco: Never Tobacco comments: She quit for a year, stress from work caused her to start back up. She is out of [employer]es right now and is not going to buy any more. Substance Use Topics Alcohol use: Never Drug use: Defer Family History Problem Relation Name Age of Onset Liver cancer Mother Diabetes Mother Cancer Mother Hypertension Father Heart disease Father Thyroid disease Mother's Sister Diabetes Sibling Past Medical History: Diagnosis Date Asthmatic bronchitis (CMS/HCC) Ativan use. 2012 Disease: Elevated BP and stress reaction Diabetes mellitus type 2 without complication HTN (hypertension) (CMS/HCC) Past Surgical History: Procedure Laterality Date SECTION, LOW TRANSVERSE HEART CATH 2009 HYSTERECTOMY Visit Vitals Smoking Status Former Review of Systems Constitutional: Positive for fatigue. HENT: Positive for congestion, postnasal drip and rhinorrhea. Eyes: Negative. Respiratory: Positive for cough, shortness of breath and wheezing. Cardiovascular: Negative. Gastrointestinal: Negative. Genitourinary: Negative. Musculoskeletal: Negative. Skin: Negative. Neurological: Negative. Psychiatric/Behavioral: Negative. Hematological: Negative. Endocrine: Negative. Allergic/Immunologic: Negative. Objective Physical Exam Constitutional: Appearance: She is ill-appearing. HENT: Head: Normocephalic and atraumatic. Ears: Comments: Bilateral TM's are dull, canals are clear Nose: Congestion and rhinorrhea present. Mouth/Throat: Mouth: Mucous membranes are moist. Pharynx: Oropharynx is clear. Posterior oropharyngeal erythema present. Eyes: Extraocular Movements: Extraocular movements intact. Conjunctiva/sclera: Conjunctivae normal. Pupils: Pupils are equal, round, and reactive to light. Cardiovascular: Rate and Rhythm: Normal rate and regular rhythm. Pulses: Normal pulses. Heart sounds: Normal heart sounds. Pulmonary: Breath sounds: Wheezing present. Abdominal: Palpations: Abdomen is soft. Musculoskeletal: General: Normal range of motion. Cervical back: Normal range of motion and neck supple. Skin: General: Skin is warm and dry. Neurological: General: No focal deficit present. Mental Status: She is alert and oriented to person, place, and time. Psychiatric: Mood and Affect: Mood normal. Behavior: Behavior normal. Thought Content: Thought content normal. Judgment: Judgment normal. Assessment/Plan 1. Acute bronchitis, unspecified organism Discussed diagnosis, use of medrol, doxycycline and their most common side effects. Advised to increase her fluids, rest, continue the medication as ordered. May use home neb tx's as ordered. Follow up if continued symptoms. - methylPREDNISolone (Medrol Dospak) 4 MG tablets; Follow schedule on package instructions Dispense: 21 tablet; Refill: 0 - doxycycline (Vibra-Tabs) 100 MG tablet; Take 1 tablet (100 mg) by mouth in the morning and 1 tablet (100 mg) before bedtime. Do all this for 10 days. Take with a full glass of water and do not lie down for at least 30 minutes after.. Dispense: 20 tablet; Refill: 0 2. Acute cough Discussed use of benzonatate and its most common side effects with the pt today. - benzonatate (Tessalon) 200 MG capsule; Take 1 capsule (200 mg) by mouth 3 (three) times a day as needed for cough for up to 10 days Do not crush or chew. Dispense: 30 capsule; Refill: 0 No follow-ups on file. documented in this encounter [facility] 08-29-2023 Instructions Sarah Jimenez NP - 08/29/2023 10:00 AM EST Add doxycycline x 10 days. Add benzonatate x 10days. Add medrol as directed. 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) Type 2 diabetes mellitus without complication, without long-term current use of insulin ([facility]/HCC) Routine general medical examination at health care facility- Primary Routine general medical examination at a health care facility Abnormal glucose tolerance test Impaired glucose tolerance test Benign essential hypertension ([facility]/HCC) Essential hypertension, benign Medicare annual wellness visit, subsequent Type 2 diabetes mellitus without complication, with long-term current use of insulin ([facility]) Mixed hyperlipidemia (CMS/HCC) Mixed hyperlipidemia Adjustment disorder with anxiety ([facility]/HCC) Adjustment disorder with anxiety Adjustment disorder with anxiety ([facility]/HCC) Adjustment disorder with anxiety Osteoporosis without current pathological fracture, unspecified osteoporosis type (CMS/HCC) Benign essential hypertension ([facility]/HCC)- Primary Essential hypertension, benign Type 2 diabetes mellitus without complication, with long-term current use of insulin ([facility]) Type 2 diabetes mellitus with other specified complication ([facility]) Hyperlipidemia, unspecified (CMS/HCC) Adjustment disorder with anxiety (CMS/HCC) Adjustment disorder with anxiety Mucopurulent chronic bronchitis ([facility]/HCC) Mucopurulent chronic bronchitis Adjustment disorder with anxiety ([facility]) Adjustment disorder with anxiety documented in this encounter [facility]* Diagnosis Osteoporosis without current pathological fracture, unspecified osteoporosis type (CMS/HCC)- Primary Adjustment disorder with anxiety (CMS/HCC) Adjustment disorder with anxiety Mucopurulent chronic bronchitis ([facility]/HCC) 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 ([facility]) Type 2 diabetes mellitus without complication, without long-term current use of insulin ([facility]) Routine general medical examination at health care facility- Primary Routine general medical examination at a health care facility Abnormal glucose tolerance test Impaired glucose tolerance test Benign essential hypertension ([facility]/HCC) Essential hypertension, benign Medicare annual wellness visit, subsequent Type 2 diabetes mellitus without complication, with long-term current use of insulin ([facility]) Mixed hyperlipidemia (CMS/HCC) Mixed hyperlipidemia Adjustment disorder with anxiety ([facility]HCC) Adjustment disorder with anxiety Adjustment disorder with anxiety ([facility]CC) Adjustment disorder with anxiety Osteoporosis without current pathological fracture, unspecified osteoporosis type (CMS/HCC) Benign essential hypertension ([facility]/HCC)- Primary Essential hypertension, benign Type 2 diabetes mellitus without complication, with long-term current use of insulin ([facility]) Type 2 diabetes mellitus with other specified complication ([facility]/HCC) Hyperlipidemia, unspecified (CMS/HCC) Adjustment disorder with anxiety ([facility]CC) Adjustment disorder with anxiety Mucopurulent chronic bronchitis ([facility]/HCC) Mucopurulent chronic bronchitis Type 2 diabetes mellitus without complication, without long-term current use of insulin ([facility]CC) documented in this encounter [facility]* Diagnosis Osteoporosis without current pathological fracture, unspecified osteoporosis type ([facility]HCC)- Primary Adjustment disorder with anxiety ([facility]CC) Adjustment disorder with anxiety Mucopurulent chronic bronchitis ([facility]HCC) 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 ([facility]) Type 2 diabetes mellitus without complication, without long-term current use of insulin ([facility]) Routine general medical examination at health care facility- Primary Routine general medical examination at a health care facility Abnormal glucose tolerance test Impaired glucose tolerance test Benign essential hypertension ([facility]) Essential hypertension, benign Medicare annual wellness visit, subsequent Type 2 diabetes mellitus without complication, with long-term current use of insulin ([facility] Mixed hyperlipidemia ([facility] Mixed hyperlipidemia Adjustment disorder with anxiety ([facility] Adjustment disorder with anxiety Adjustment disorder with anxiety ([facility]) Adjustment disorder with anxiety Osteoporosis without current pathological fracture, unspecified osteoporosis type ([facility]) Benign essential hypertension ([facility]/HCC)- Primary Essential hypertension, benign Type 2 diabetes mellitus without complication, with long-term current use of insulin ([facility]) Type 2 diabetes mellitus with other specified complication ([facility]) Hyperlipidemia, unspecified ([facility]CC) Adjustment disorder with anxiety ([facility]CC) Adjustment disorder with anxiety Mucopurulent chronic bronchitis ([facility]/HCC) Mucopurulent chronic bronchitis Osteoporosis without current pathological fracture, unspecified osteoporosis type ([facility]HCC)- Primary Adjustment disorder with anxiety ([facility]CC) Adjustment disorder with anxiety documented in this encounter [facility]* Diagnosis Adjustment disorder with anxiety ([facility]CC)- Primary Adjustment disorder with anxiety documented in this encounter [facility]* Diagnosis Osteoporosis without current pathological fracture, unspecified osteoporosis type ([facility]HCC)- Primary Adjustment disorder with anxiety ([facility]CC) Adjustment disorder with anxiety Mucopurulent chronic bronchitis ([facility]CC) 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 ([facility]HCC) Type 2 diabetes mellitus without complication, without long-term current use of insulin ([facility]) Routine general medical examination at health care facility- Primary Routine general medical examination at a health care facility Abnormal glucose tolerance test Impaired glucose tolerance test Benign essential hypertension ([facility]CC) Essential hypertension, benign Medicare annual wellness visit, subsequent Type 2 diabetes mellitus without complication, with long-term current use of insulin ([facility]) Mixed hyperlipidemia ([facility]CC) Mixed hyperlipidemia Adjustment disorder with anxiety ([facility]) Adjustment disorder with anxiety Adjustment disorder with anxiety ([facility]) Adjustment disorder with anxiety Osteoporosis without current pathological fracture, unspecified osteoporosis type ([facility]) Benign essential hypertension ([facility])- Primary Essential hypertension, benign Type 2 diabetes mellitus without complication, with long-term current use of insulin ([facility]) Type 2 diabetes mellitus with other specified complication ([facility]CC) Hyperlipidemia, unspecified ([facility]) Adjustment disorder with anxiety ([facility]) Adjustment disorder with anxiety Mucopurulent chronic bronchitis ([facility]) Mucopurulent chronic bronchitis Osteoporosis without current pathological fracture, unspecified osteoporosis type ([facility]HCC)- Primary Adjustment disorder with anxiety ([facility]) Adjustment disorder with anxiety Routine general medical examination at health care facility- Primary Routine general medical examination at a health care facility Encounter for screening mammogram for malignant neoplasm of breast Ankle edema Edema Hypertension due to endocrine disorder ([facility]) Adjustment disorder with anxiety ([facility]) Adjustment disorder with anxiety Encounter for immunization Type 2 diabetes mellitus without complication, without long-term current use of insulin ([facility]) Abnormal glucose tolerance test Impaired glucose tolerance test Medicare annual wellness visit, subsequent Mixed hyperlipidemia (/HCC) Mixed hyperlipidemia Interstitial pulmonary disease, unspecified (CMS/HCC) Type 2 diabetes mellitus with other specified complication ([facility]CC) Hyperlipidemia, unspecified ([facility]CC) Chronic obstructive pulmonary disease, unspecified ([facility]CC) Mucopurulent chronic bronchitis ([facility]) Mucopurulent chronic bronchitis longterm (current) use of insulin ([facility]) documented in this encounter [facility]* Diagnosis Osteoporosis without current pathological fracture, unspecified osteoporosis type ([facility]HCC)- Primary Adjustment disorder with anxiety ([facility]CC) Adjustment disorder with anxiety Mucopurulent chronic bronchitis ([facility]CC) 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 ([facility]CC) Type 2 diabetes mellitus without complication, without long-term current use of insulin ([facility]) Routine general medical examination at health care facility- Primary Routine general medical examination at a health care facility Abnormal glucose tolerance test Impaired glucose tolerance test Benign essential hypertension ([facility]CC) Essential hypertension, benign Medicare annual wellness visit, subsequent Type 2 diabetes mellitus without complication, with long-term current use of insulin ([facility]) Mixed hyperlipidemia ([facility] Mixed hyperlipidemia Adjustment disorder with anxiety ([facility] Adjustment disorder with anxiety Adjustment disorder with anxiety ([facility]) Adjustment disorder with anxiety Osteoporosis without current pathological fracture, unspecified osteoporosis type ([facility]) Benign essential hypertension ([facility])- Primary Essential hypertension, benign Type 2 diabetes mellitus without complication, with long-term current use of insulin ([facility]) Type 2 diabetes mellitus with other specified complication ([facility]) Hyperlipidemia, unspecified ([facility]) Adjustment disorder with anxiety ([facility]) Adjustment disorder with anxiety Mucopurulent chronic bronchitis ([facility]) Mucopurulent chronic bronchitis Osteoporosis without current pathological fracture, unspecified osteoporosis type ([facility])- Primary Adjustment disorder with anxiety ([facility]CC) Adjustment disorder with anxiety Routine general medical examination at health care facility- Primary Routine general medical examination at a health care facility Encounter for screening mammogram for malignant neoplasm of breast Ankle edema Edema Hypertension due to endocrine disorder ([facility] Adjustment disorder with anxiety ([facility]) Adjustment disorder with anxiety Encounter for immunization Type 2 diabetes mellitus without complication, without long-term current use of insulin ([facility]) Abnormal glucose tolerance test Impaired glucose tolerance test Medicare annual wellness visit, subsequent Mixed hyperlipidemia ([facility]/HCC) Mixed hyperlipidemia Interstitial pulmonary disease, unspecified ([facility]) Type 2 diabetes mellitus with other specified complication ([facility]CC) Hyperlipidemia, unspecified ([facility]) Chronic obstructive pulmonary disease, unspecified ([facility]CC) Mucopurulent chronic bronchitis ([facility]CC) 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 ([facility]) Adjustment disorder with anxiety ([facility]) Adjustment disorder with anxiety documented in this encounter [facility]* Diagnosis Osteoporosis without current pathological fracture, unspecified osteoporosis type ([facility]CC)- Primary Adjustment disorder with anxiety ([facility]) Adjustment disorder with anxiety Mucopurulent chronic bronchitis ([facility]) 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 ([facility]) Type 2 diabetes mellitus without complication, without long-term current use of insulin ([facility]) Routine general medical examination at health care facility- Primary Routine general medical examination at a health care facility Abnormal glucose tolerance test Impaired glucose tolerance test Benign essential hypertension ([facility]) Essential hypertension, benign Medicare annual wellness visit, subsequent Type 2 diabetes mellitus without complication, with long-term current use of insulin ([facility] Mixed hyperlipidemia ([facility] Mixed hyperlipidemia Adjustment disorder with anxiety ([facility] Adjustment disorder with anxiety Adjustment disorder with anxiety ([facility]) Adjustment disorder with anxiety Osteoporosis without current pathological fracture, unspecified osteoporosis type ([facility]) Benign essential hypertension ([facility])- Primary Essential hypertension, benign Type 2 diabetes mellitus without complication, with long-term current use of insulin ([facility]) Type 2 diabetes mellitus with other specified complication ([facility]) Hyperlipidemia, unspecified ([facility]) Adjustment disorder with anxiety ([facility] Adjustment disorder with anxiety Mucopurulent chronic bronchitis ([facility]) Mucopurulent chronic bronchitis Osteoporosis without current pathological fracture, unspecified osteoporosis type ([facility])- Primary Adjustment disorder with anxiety ([facility]) Adjustment disorder with anxiety Routine general medical examination at health care facility- Primary Routine general medical examination at a health care facility Encounter for screening mammogram for malignant neoplasm of breast Ankle edema Edema Hypertension due to endocrine disorder ([facility] Adjustment disorder with anxiety ([facility]) Adjustment disorder with anxiety Encounter for immunization Type 2 diabetes mellitus without complication, without long-term current use of insulin ([facility]) Abnormal glucose tolerance test Impaired glucose tolerance test Medicare annual wellness visit, subsequent Mixed hyperlipidemia ([facility]) Mixed hyperlipidemia Interstitial pulmonary disease, unspecified (/[facility]) Type 2 diabetes mellitus with other specified complication ([facility]) Hyperlipidemia, unspecified ([facility]) Chronic obstructive pulmonary disease, unspecified ([facility]) Mucopurulent chronic bronchitis ([facility] Mucopurulent chronic bronchitis longterm (current) use of insulin ([facility]) Adjustment disorder with anxiety ([facility]) Adjustment disorder with anxiety documented in this encounter [facility]* Diagnosis Osteoporosis without current pathological fracture, unspecified osteoporosis type ([facility])- Primary Adjustment disorder with anxiety ([facility] Adjustment disorder with anxiety Mucopurulent chronic bronchitis ([facility]) 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 ([facility]) Type 2 diabetes mellitus without complication, without long-term current use of insulin Routine general medical examination at health care facility- Primary Routine general medical examination at a health care facility Abnormal glucose tolerance test Impaired glucose tolerance test Benign essential hypertension ([facility]) Essential hypertension, benign Medicare annual wellness visit, subsequent Type 2 diabetes mellitus without complication, with long-term current use of insulin Mixed hyperlipidemia ([facility]) Mixed hyperlipidemia Adjustment disorder with anxiety ([facility] Adjustment disorder with anxiety Adjustment disorder with anxiety ([facility]) Adjustment disorder with anxiety Osteoporosis without current pathological fracture, unspecified osteoporosis type ([facility]) Benign essential hypertension ([facility])- Primary Essential hypertension, benign Type 2 diabetes mellitus without complication, with long-term current use of insulin Type 2 diabetes mellitus with other specified complication Hyperlipidemia, unspecified ([facility]) Adjustment disorder with anxiety ([facility]) Adjustment disorder with anxiety Mucopurulent chronic bronchitis ([facility]) Mucopurulent chronic bronchitis Osteoporosis without current pathological fracture, unspecified osteoporosis type ([facility])- Primary Adjustment disorder with anxiety ([facility]) Adjustment disorder with anxiety Routine general medical examination at health care facility- Primary Routine general medical examination at a health care facility Encounter for screening mammogram for malignant neoplasm of breast Ankle edema Edema Hypertension due to endocrine disorder ([facility]) Adjustment disorder with anxiety ([facility]) Adjustment disorder with anxiety Encounter for immunization Type 2 diabetes mellitus without complication, without long-term current use of insulin Abnormal glucose tolerance test Impaired glucose tolerance test Medicare annual wellness visit, subsequent Mixed hyperlipidemia ([facility]) Mixed hyperlipidemia Interstitial pulmonary disease, unspecified Type 2 diabetes mellitus with other specified complication Hyperlipidemia, unspecified ([facility]) Chronic obstructive pulmonary disease, unspecified Mucopurulent chronic bronchitis ([facility]) 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 ([facility]) Adjustment disorder with anxiety ([facility])- Primary Adjustment disorder with anxiety Hypertension due to endocrine disorder ([facility]) Benign essential hypertension ([facility]) Essential hypertension, benign Type 2 diabetes mellitus with other specified complication, with long-term current use of insulin documented in this encounter [facility]* Diagnosis Osteoporosis without current pathological fracture, unspecified osteoporosis type ([facility])- Primary Adjustment disorder with anxiety ([facility]) Adjustment disorder with anxiety Mucopurulent chronic bronchitis ([facility]) 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 ([facility]) Type 2 diabetes mellitus without complication, without long-term current use of insulin Routine general medical examination at health care facility- Primary Routine general medical examination at a health care facility Abnormal glucose tolerance test Impaired glucose tolerance test Benign essential hypertension ([facility]) Essential hypertension, benign Medicare annual wellness visit, subsequent Type 2 diabetes mellitus without complication, with long-term current use of insulin Mixed hyperlipidemia ([facility]) Mixed hyperlipidemia Adjustment disorder with anxiety ([facility]) Adjustment disorder with anxiety Adjustment disorder with anxiety ([facility]) Adjustment disorder with anxiety Osteoporosis without current pathological fracture, unspecified osteoporosis type ([facility]) Benign essential hypertension ([facility])- Primary Essential hypertension, benign Type 2 diabetes mellitus without complication, with long-term current use of insulin Type 2 diabetes mellitus with other specified complication Hyperlipidemia, unspecified ([facility]) Adjustment disorder with anxiety ([facility]) Adjustment disorder with anxiety Mucopurulent chronic bronchitis ([facility]) Mucopurulent chronic bronchitis Osteoporosis without current pathological fracture, unspecified osteoporosis type ([facility])- Primary Adjustment disorder with anxiety ([facility]) Adjustment disorder with anxiety Routine general medical examination at health care facility- Primary Routine general medical examination at a health care facility Encounter for screening mammogram for malignant neoplasm of breast Ankle edema Edema Hypertension due to endocrine disorder ([facility]) Adjustment disorder with anxiety ([facility]) Adjustment disorder with anxiety Encounter for immunization Type 2 diabetes mellitus without complication, without long-term current use of insulin Abnormal glucose tolerance test Impaired glucose tolerance test Medicare annual wellness visit, subsequent Mixed hyperlipidemia ([facility]) Mixed hyperlipidemia Interstitial pulmonary disease, unspecified Type 2 diabetes mellitus with other specified complication Hyperlipidemia, unspecified ([facility]) Chronic obstructive pulmonary disease, unspecified Mucopurulent chronic bronchitis ([facility]) 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 ([facility]) Adjustment disorder with anxiety ([facility])- Primary Adjustment disorder with anxiety Hypertension due to endocrine disorder ([facility]) Benign essential hypertension ([facility]) Essential hypertension, benign Type 2 diabetes mellitus with other specified complication, with long-term current use of insulin Adjustment disorder with anxiety ([facility]) Adjustment disorder with anxiety documented in this encounter [facility]* Diagnosis Osteoporosis without current pathological fracture, unspecified osteoporosis type- Primary Adjustment disorder with anxiety Adjustment disorder with anxiety Mucopurulent chronic bronchitis (HCC) 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 Type 2 diabetes mellitus without complication, without long-term current use of insulin (HCC) Routine general medical examination at [facility] care facility- Primary Routine general medical examination at a health care facility Abnormal glucose tolerance test Impaired glucose tolerance test Benign essential hypertension Essential hypertension, benign Medicare annual wellness visit, subsequent Type 2 diabetes mellitus without complication, with long-term current use of insulin (HCC) Mixed hyperlipidemia Mixed hyperlipidemia Adjustment disorder with anxiety Adjustment disorder with anxiety Adjustment disorder with anxiety Adjustment disorder with anxiety Osteoporosis without current pathological fracture, unspecified osteoporosis type Benign essential hypertension- Primary Essential hypertension, benign Type 2 diabetes mellitus without complication, with long-term current use of insulin (HCC) Type 2 diabetes mellitus with other specified complication (HCC) Hyperlipidemia, unspecified Adjustment disorder with anxiety Adjustment disorder with anxiety Mucopurulent chronic bronchitis (HCC) Mucopurulent chronic bronchitis Osteoporosis without current pathological fracture, unspecified osteoporosis type- Primary Adjustment disorder with anxiety Adjustment disorder with anxiety Routine general medical examination at [facility]- Primary Routine general medical examination at [facility] Encounter for screening mammogram for malignant neoplasm of breast Ankle edema Edema Hypertension due to endocrine disorder Adjustment disorder with anxiety Adjustment disorder with anxiety Encounter for immunization Type 2 diabetes mellitus without complication, without long-term current use of insulin (HCC) Abnormal glucose tolerance test Impaired glucose tolerance test Medicare annual wellness visit, subsequent Mixed hyperlipidemia Mixed hyperlipidemia Interstitial pulmonary disease, unspecified (HCC) Type 2 diabetes mellitus with other specified complication (HCC) Hyperlipidemia, unspecified Chronic obstructive pulmonary disease, unspecified (HCC) Mucopurulent chronic bronchitis (HCC) Mucopurulent chronic bronchitis longterm (current) use of insulin (HCC) Adjustment disorder with anxiety- Primary Adjustment disorder with anxiety Hypertension due to endocrine disorder Benign essential hypertension Essential hypertension, benign Type 2 diabetes mellitus with other specified complication, with long-term current use of insulin (HCC) Adjustment disorder with anxiety Adjustment disorder with anxiety documented in this encounter [facility]* Diagnosis Osteoporosis without current pathological fracture, unspecified osteoporosis type- Primary Adjustment disorder with anxiety Adjustment disorder with anxiety Mucopurulent chronic bronchitis (HCC) 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 Type 2 diabetes mellitus without complication, without long-term current use of insulin (HCC) Routine general medical examination at [facility] facility- Primary Routine general medical examination at a [facility] facility Abnormal glucose tolerance test Impaired glucose tolerance test Benign essential hypertension Essential hypertension, benign Medicare annual wellness visit, subsequent Type 2 diabetes mellitus without complication, with long-term current use of insulin (HCC) Mixed hyperlipidemia Mixed hyperlipidemia Adjustment disorder with anxiety Adjustment disorder with anxiety Adjustment disorder with anxiety Adjustment disorder with anxiety Osteoporosis without current pathological fracture, unspecified osteoporosis type Benign essential hypertension- Primary Essential hypertension, benign Type 2 diabetes mellitus without complication, with long-term current use of insulin (HCC) Type 2 diabetes mellitus with other specified complication (HCC) Hyperlipidemia, unspecified Adjustment disorder with anxiety Adjustment disorder with anxiety Mucopurulent chronic bronchitis (HCC) Mucopurulent chronic bronchitis Osteoporosis without current pathological fracture, unspecified osteoporosis type- Primary Adjustment disorder with anxiety Adjustment disorder with anxiety Routine general medical examination at [facility] facility- Primary Routine general medical examination at [facility] Encounter for screening mammogram for malignant neoplasm of breast Ankle edema Edema Hypertension due to endocrine disorder Adjustment disorder with anxiety Adjustment disorder with anxiety Encounter for immunization Type 2 diabetes mellitus without complication, without long-term current use of insulin (HCC) Abnormal glucose tolerance test Impaired glucose tolerance test Medicare annual wellness visit, subsequent Mixed hyperlipidemia Mixed hyperlipidemia Interstitial pulmonary disease, unspecified (HCC) Type 2 diabetes mellitus with other specified complication (HCC) Hyperlipidemia, unspecified Chronic obstructive pulmonary disease, unspecified (HCC) Mucopurulent chronic bronchitis (HCC) 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 (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) Adjustment disorder with anxiety- Primary Adjustment disorder with anxiety Hypertension due to endocrine disorder Benign essential hypertension Essential hypertension, benign Type 2 diabetes mellitus with other specified complication, with long-term current use of insulin (HCC) Microalbuminuria due to type 2 diabetes mellitus (HCC)- Primary Adjustment disorder with anxiety Adjustment disorder with anxiety documented in this encounter [facility] Purpose Family History No Family History Records FoundNo Family History Records FoundNo Family History Records FoundNo Family History Records Found Advance Directives No Advanced Directives Records FoundNo Advanced Directives Records FoundNo Advanced Directives Records FoundNo Advanced Directives Records Found Additional Source Comments INFORMATION SOURCE (unrecogn ized section and content) DATE CREATED AUTHOR 08/09/2021 Esteban [facility] DATE CREATED AUTHOR AUTHOR'S ORGANIZ ATION 08/03/2022 [facility] DATE CREATED AUTHOR AUTHOR'S ORGANIZ ATION 11/01/2024 [facility] DATE CREATED AUTHOR AUTHOR'S ORGANIZ ATION 02/24/2025 [facility] EPIC Reason for Visit (unrecogniz ed section and content) Reason Comments chest cold Reason Onset Date Comments Med Refill 05/20/2024 Reason Comments Med Refill Reason Comments prolia injection This is a buy and bi ll Reason Onset Date Comments Med Refill 04/03/2024 Reason Comments Medicare Annual Wellness Visit Subsequen t Reason Onset Date Comments Med Refill 09/29/2024 Reason Comments Anxiety Pt needs to complete all labs and micro Reason Onset Date Comments Med Refill 11/23/2024 Reason Onset Date Comments Med Refill 01/08/2025 Reason Comments Diabetes Last 5.8 Care Teams (unrecognized sec tion and content) Heavy Coil Winder Relationship Specialty Start Date End Date Marco Brock MD [address] [place] [address] PCP - General Family Medicine 01/04/23 Heavy Coil Winder Relationship Specialty Start Date End Date Marco Brock MD [address] [facility] [address] [place] [address] PCP - General Family Medicine 01/04/23 Marco Brock MD [address] [place] [address] PCP - ACO Reach 09/20/23 Heavy Coil Winder Relationship Specialty Start Date End Date Marco Brock MD [address] [place] [address] PCP - General Family Medicine 01/04/23 Marco Brock MD [address] [place] [address] PCP - ACO Reach 09/20/23 Heavy Coil Winder Relationship Specialty Start Date End Date Marco Brock MD [address] [place] [address] PCP - General Family Medicine 01/04/23 Marco Brock MD [address] [place] [address] PCP - ACO Reach 09/20/23 Heavy Coil Winder Relationship Specialty Start Date End Date Marco Brock MD [address] [place] [address] PCP - General Family Medicine 01/04/23 Marco Brock MD [address] [place] [address] PCP - ACO Reach 09/20/23 Heavy Coil Winder Relationship Specialty Start Date End Date Marco Brock MD [address] [place] [address] PCP - General Family Medicine 01/04/23 Marco Brock MD [address] [place] [address] PCP - ACO Reach 09/20/23 Heavy Coil Winder Relationship Specialty Start Date End Date Marco Brock MD [address] [place] [address] PCP - General Family Medicine 01/04/23 Marco Brock MD [address] [place] [address] PCP - ACO Reach 09/20/23 Emani Pereyra, RN [facility] 08/28/24 Heavy Coil Winder Relationship Specialty Start Date End Date Marco Brock MD [address] [place] [address] PCP - General Family Medicine 01/04/23 Marco Brock MD [address] [place] [address] PCP - ACO Reach 09/20/23 Emani Pereyra, MALIHA [facility] 08/28/24 Heavy Coil Winder Relationship Specialty Start Date End Date Marco Brock MD [address] [place] [address] PCP - General Family Medicine 01/04/23 Marco Brock MD [address] [place] [address] PCP - ACO Reach 09/20/23 Oly Granado 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 10/09/24 Heavy Coil Winder Relationship Specialty Start Date End Date Marco Brock MD [address] [place] [address] PCP - General Family Medicine 01/04/23 Marco Brock MD [address] [place] [address] PCP - ACO Reach 09/20/23 Oly Granado 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 10/09/24 Heavy Coil Winder Relationship Specialty Start Date End Date Marco Brock MD [address] [place] [address] PCP - General Family Medicine 01/04/23 Marco Brock MD [address] [place] [address] PCP - ACO Reach 09/20/23 Oly Granado LPN [address] [facility] [address] [place] [address] 10/09/24 Heavy Coil Winder Relationship Specialty Start Date End Date Marco Brock MD [address] [facility] [address] [place] [address] PCP - General Family Medicine 01/04/23 Marco Brock MD [address] [facility] [address] [place] [address] PCP - ACO Reach 09/20/23 Oly Granado LPN [address] [facility] [address] [place] [address] 10/09/24 FOR RECORDS PERTAINING TO PATIENTS WHO ARE OR HAVE BEEN ENROLLED IN A CHEMICAL DEPENDENCY/SUBSTANCEABUSE PROGRAM, SOME INFORMATION MAY BE OMITTED. This clinical summary was aggregated from multiple sources. Caution should be exercised in using it in the provision of clinical care. This summary normalizes information from multiple sources, and as a consequence, information in this document may materially change the coding, format and clinical context of patient data. In addition, data may be omitted in some cases. CLINICAL DECISIONS SHOULD BE BASED ON THE PRIMARY CLINICAL RECORDS. [employer] [facility]. provides no warranty or guarantee of the accuracy or completeness of information in this document.
== END 2025-04-07 14:27 | disposition home or self-care (01) ==
LOC: MAMMO 14:26
PROVIDERS: PCP Family Medicine; Visit Provider Family Medicine
DX: Z12.31 Encounter for screening mammogram for malignant neoplasm of breast (principal); Z80.8 Family history of malignant neoplasm of other organs or systems
CPT/HCPCS: 77063; 77067